=== PATIENT | female | born 1935 | race Caucasian/White ===

== ENCOUNTER 2024-11-27 15:25 | Inpatient (IN) | payer MEDICARE, SELFPAY ==
[2024-11-27 15:31] VITALS: BP 130/70; PULSE 102; TEMP 37.5; O2SAT 96
--- NOTE | 2024-11-27 15:36 | ED.GENADUL1 ---
HPI HPI - General Adult General Chief complaint: Fall Stated complaint: FAll Time Seen by Provider: 11/27/24 15:27 Source: family Mode of arrival: ambulance History of Present Illness HPI narrative: Patient is an 89-year-old female presenting to the emergency department via EMS from home hospice for concerns of a left lower extremity injury. The patient rolled out of bed 4 days ago. She sustained a left lower extremity injury after rolling out of bed, and just obtained x-rays today. The x-rays demonstrated a fracture of an unspecified bone in her lower extremity. Therefore, she was conveyed to the ED for management. The patient is accompanied by her daughter. She states that the patient is bedbound at baseline, has a history of severe dementia, and is DNR/CC. She has no other concerns for the patient other than the left lower extremity injury. Related Data Home Medications ?Medication ?Instructions ?Recorded ?Confirmed acetaminophen 325 mg capsule 650 mg PO Q6H PRN fever or pain 11/27/24 11/27/24 apixaban 2.5 mg tablet (Eliquis) 2.5 mg PO BID 11/27/24 11/27/24 diltiazem HCl 240 mg 240 mg PO DAILY 11/27/24 11/27/24 capsule,extended release 24 hr (Cardizem CD) duloxetine 60 mg capsule,delayed 60 mg PO DAILY 11/27/24 11/27/24 release gabapentin 300 mg capsule 600 mg PO TID 11/27/24 11/27/24 guaifenesin 600 mg tablet, 600 mg PO BID 11/27/24 11/27/24 extended release 12 hr (Mucinex) levothyroxine 112 mcg capsule 112 mcg PO DAILY 11/27/24 11/27/24 lorazepam 0.5 mg tablet 0.25 mg PO Q4H PRN agitation 11/27/24 11/27/24 metoprolol tartrate 50 mg tablet 50 mg PO BID 11/27/24 11/27/24 morphine concentrate 20 mg/mL oral 5 mg sublingual Q2H PRN pain and 11/27/24 11/27/24 syringe (FOR ORAL USE ONLY) shortness of breath rosuvastatin 10 mg tablet 10 mg PO QPM 11/27/24 11/27/24 sertraline 100 mg tablet 100 mg PO DAILY 11/27/24 11/27/24 trazodone 50 mg tablet 50 mg PO QPM PRN sleep 11/27/24 11/27/24 Allergies Allergy/AdvReac Type Severity Reaction Status Date / Time No Known Drug Allergies Allergy Verified 11/27/24 15:26 Opioid HPI Opioid Management Most Recent Opioid Data: Last Pain Scale 8 Today, 15:48 Last ED Pain Assessment Today, 15:48 Review of Systems ROS Status of ROS 10 or more systems reviewed and unremarkable except as noted in history and below Exam Narrative Exam Narrative: CONSTITUTIONAL: Patient appears to be in pain, nonverbal at baseline, does not answer questions or follow commands, awake and alert SKIN: Was warm and dry, no skin changes or external signs of injury throughout the left lower. EYES: Sclerae white. EARS, NOSE, THROAT: Moist oral mucosa. RESPIRATORY: Clear to auscultation bilaterally, no wheezes, crackles, or stridor, no use of accessory muscles CARDIOVASCULAR: Normal rate and regular rhythm. 1+ DP pulses bilaterally. GASTROINTESTINAL: Abdomen is nondistended. MUSCULOSKELETAL: The patient winces in pain as I palpate throughout all major bones of the left lower extremity. There are no obvious deformities. The compartments are soft and compressible. NEUROLOGIC: Patient is awake and alert. She moves the right lower extremity spontaneously, not moving left lower extremity. She withdraws to pain in the bilateral lower extremity. Constitutional Vital Signs, click to edit/add: Last Vital Signs Temp 99.5 F 11/27/24 15:31 Pulse 62 11/27/24 17:02 Resp 12 11/27/24 16:41 BP 130/70 11/27/24 15:31 Pulse Ox 92 L 11/27/24 17:02 O2 Del Method Nasal Cannula 11/27/24 17:02 O2 Flow Rate 2 11/27/24 17:02 Course Vital Signs Vital signs: Vital Signs Temperature 99.5 F 11/27/24 15:31 Pulse Rate 102 H 11/27/24 15:31 Respiratory Rate 22 H 11/27/24 15:31 Blood Pressure 130/70 11/27/24 15:31 Pulse Oximetry 96 11/27/24 15:31 Oxygen Delivery Method Nasal Cannula 11/27/24 15:31 Oxygen Delivery Flow Rate 2 11/27/24 15:31 Temperature 99.5 F 11/27/24 15:31 Pulse Rate 62 11/27/24 17:02 Respiratory Rate 12 11/27/24 16:41 Blood Pressure 130/70 11/27/24 15:31 Pulse Oximetry 92 L 11/27/24 17:02 Oxygen Delivery Method Nasal Cannula 11/27/24 17:02 Oxygen Delivery Flow Rate 2 11/27/24 17:02 Medical Decision Making MDM Narrative Medical decision making narrative: Patient is an 89-year-old female presenting to the emergency department via EMS from home hospice for concerns of left lower extremity fracture sustained 4 days ago after rolling out of bed. Patient is accompanied by her daughter. The patient is bedbound at baseline, has severe dementia, and is DNR/CC. Examination as noted above. She is afebrile and hemodynamically stable. She is saturating 94% on 2 L nasal cannula, which hospital started for the patient today. She is neurovascularly intact in the bilateral lower extremities. There are no obvious deformities. We were able to speak with the hospice nurse who explained to the patient had a L femoral condyle fracture. Differential diagnose includes left femoral condyle fracture, hip fracture. X-rays of the pelvis and left knee were obtained. She was given a breathing treatment as the family is concerned she was wheezing. X-rays of the pelvis and left knee independently reviewed and interpreted by myself and radiology demonstrated mildly displaced medial femoral condyle fracture. I do believe patient is stable for discharge. Given that the patient is nonambulatory at baseline, I gave the family a knee immobilizer to use should they desire. The knee immobilizer will likely provide comfort/support when being rolled/changed in bed. Family was encouraged to continue to care for the patient at home with the help of home hospice. They understand and agree to the plan. FINAL IMPRESSION: #Acute left medial femoral condyle fracture #History of advanced dementia on home hospice DISPOSITION: Discharged home CONDITION: Fair Imaging Data knee xray L: Attestation: I personally reviewed and interpreted this imaging study as follows: Radiologist's impression: ITS Impressions Pelvis X-Ray 11/27/24 16:07 IMPRESSION:No acute displaced fracture 2 views left elbow mildly displaced fracture of the medial femoral condyle. Large joint effusion. Decreased bony mineralization. Anterior soft tissue swelling. IMPRESSION: Mildly displaced medial femoral condyle fracture. Impression dictated by: Zhou Martinez M.D. 11/27/2024 4:39 PM Dictation Location: [employer] Electronically authenticated by: [id number] Y Date: 11/27/2024 16:39 Knee X-Ray 11/27/24 16:08 IMPRESSION:No acute displaced fracture 2 views left elbow mildly displaced fracture of the medial femoral condyle. Large joint effusion. Decreased bony mineralization. Anterior soft tissue swelling. IMPRESSION: Mildly displaced medial femoral condyle fracture. Impression dictated by: Zhou Martinez M.D. 11/27/2024 4:39 PM Dictation Location: [place] [address] Electronically authenticated by: [id number] Y Date: 11/27/2024 16:39 Discharge Plan Discharge Chief Complaint: Fall Clinical Impression: Femoral condyle fracture Qualifiers: Encounter type: initial encounter Fracture type: closed Fracture alignment: nondisplaced Laterality: left Qualified Code(s): S72.415A - Nondisplaced unspecified condyle fracture of lower end of left femur, initial encounter for closed fracture Patient Disposition: Home, Self-Care Time of Disposition Decision: 16:48 Condition: Fair Mode of Transportation: Private Vehicle Prescriptions / Home Meds: No Action gabapentin 300 mg capsule 600 mg PO TID trazodone 50 mg tablet 50 mg PO QPM PRN (Reason: sleep) diltiazem HCl [Cardizem CD] 240 mg capsule,extended release 24hr 240 mg PO DAILY levothyroxine 112 mcg capsule 112 mcg PO DAILY Eliquis 2.5 mg tablet 2.5 mg PO BID guaifenesin [Mucinex] 600 mg tablet extended release 12hr 600 mg PO BID lorazepam 0.5 mg tablet 0.25 mg PO Q4H PRN (Reason: agitation) metoprolol tartrate 50 mg tablet 50 mg PO BID duloxetine 60 mg capsule,delayed release(DR/EC) 60 mg PO DAILY sertraline 100 mg tablet 100 mg PO DAILY acetaminophen 325 mg capsule 650 mg PO Q6H PRN (Reason: fever or pain) rosuvastatin 10 mg tablet 10 mg PO QPM morphine concentrate 20 mg/mL syringe 5 mg sublingual Q2H PRN (Reason: pain and shortness of breath) Print Language: Welsh Instructions: Leg Fracture (ED) Referrals: Physician,Non-Staff, MD [Primary Care Provider] - 1 week
--- NOTE | 2024-11-27 15:46 | PC.NURSE ---
Pt presents to ER via EMS Pts daughter follow EMS in and identifies herself as patients POA Per EMS report we were told patient is on hospice and is a DNRCC No paperwork provided by family on arrival but she does agree to this status Report states that patient fell on monday out of bed, she had xrays yesterday at the house and found out today that there is something broken EMS nor patients daughter know what it is Pt has swelling to left knee and grimmaces and cries out with palpation to all areas of left leg This nurse calls Birdie (hospice nurse number provided by family) who reads imaging reports to this nurse States that patients hip x ray was negative but there is a femoral condial fracture Pt takes percocet and morphine regularly for pain per patients daughter, medications brought physically into ER
--- NOTE | 2024-11-27 16:07 | XR_ITS ---
The [place] [id number] Patient Name: MICHELLE GUERRIER MRN: [id number] date: 1935 Sex: F Assigned Patient Location: ER Current Patient Location: [place] Accession/Order Number: [id number] Exam Date: 11/27/2024 15:50 Report Date: 11/29/2024 13:00 At the request of: FARIBA HART DO Procedure: XR knee LT 2V Correction: Revised report Single view of the pelvis plain film HISTORY: Acute left knee and pelvic pain for 4 days. Fell. COMPARISON: None ACUTE FINDINGS: None BONY ALIGNMENT: Adequate SOFT TISSUES: Unremarkable DEGENERATIVE CHANGE:Unremarkable INTRAPELVIC STRUCTURES: Unremarkable POSTSURGICAL CHANGES:Unremarkable right hip arthroplasty. Inguinal bilateral surgical clips. Left iliac stent. XR/XR pelvis 1-2V IMPRESSION:No acute displaced fracture 2 views left knee mildly displaced fracture of the medial femoral condyle. Large joint effusion. Decreased bony mineralization. Anterior soft tissue swelling. IMPRESSION: Mildly displaced medial femoral condyle fracture. Impression dictated by: Zhou Martinez M.D. 11/29/2024 1:00 PM Dictation Location: [employer] Electronically authenticated by: [id number] Y Date: 11/29/2024 13:00
--- NOTE | 2024-11-27 16:08 | XR_ITS ---
[facility] [place] [id number] Patient Name: MICHELLE GUERRIER MRN: [id number] date: 1935 Sex: F Assigned Patient Location: ER Current Patient Location: [place] Accession/Order Number: [id number] Exam Date: 11/27/2024 15:50 Report Date: 11/29/2024 13:00 At the request of: FARIBA HART DO Procedure: XR knee LT 2V Correction: Revised report Single view of the pelvis plain film HISTORY: Acute left knee and pelvic pain for 4 days. Fell. COMPARISON: None ACUTE FINDINGS: None BONY ALIGNMENT: Adequate SOFT TISSUES: Unremarkable DEGENERATIVE CHANGE:Unremarkable INTRAPELVIC STRUCTURES: Unremarkable POSTSURGICAL CHANGES:Unremarkable right hip arthroplasty. Inguinal bilateral surgical clips. Left iliac stent. XR/XR knee LT 2V IMPRESSION:No acute displaced fracture 2 views left knee mildly displaced fracture of the medial femoral condyle. Large joint effusion. Decreased bony mineralization. Anterior soft tissue swelling. IMPRESSION: Mildly displaced medial femoral condyle fracture. Impression dictated by: Zhou Martinez M.D. 11/29/2024 1:00 PM Dictation Location: [employer] Electronically authenticated by: [id number] Y Date: 11/29/2024 13:00
[2024-11-27 16:41] VITALS: PULSE 102; O2SAT 94
[2024-11-27] MEDS: ALBUTEROL SULFATE 2.5 MG/3 ML VIAL NEB IH (17:01)
[2024-11-27 17:02] VITALS: PULSE 62; O2SAT 92
--- NOTE | 2024-11-27 18:38 | PC.NURSE ---
Pts family calls this nurse to bedside to swab patients mouth as it was dry Lengthy conversation held with patients family members about what is currently happening with the patients Pts son, daughter, and grandaughter are at bedside and state this is a sudden decline for her Pt at this time is not responding verbally, and need arousal to open her eyes and look at you Pt re-vitalized Pt unable to drink through a straw, patients family states this is new for her as she usually eats and drinks on her own Pts family says prior to this fall she was still high functioning but has been declining since Monday and rapidly declining this evening Pts facial expression appears to this nurse as being in pain I suggested more pain medication as she has not had anything since noon, but patient will be unable to swallow pills at this time Pts son (POA) declines morphine and asked if she could have IV pain medication since she cannot swallow pills This nurse suggested an IM This was relayed to Dr. Claudio who was unsure of what to give the patient if they did not want Morphine and would wait for the hospice nurse to give her opinion Pts son told me the hospice nurse would be coming into the hospital to evaluate the patient and speak with the family Pts son stated if the nurse believes she can recover from this he would like to take her off of hospice and seek further treatment, however if she does not and she tells them this is the end of life as the ER doctor did then they would like to take her home Transport and discharge has already been set up, but hospice nurse is due to be here any minute
[2024-11-27 19:10] VITALS: BP 129/96; PULSE 122; O2SAT 95
[2024-11-27 19:51] LABS: Hematocrit 39.6 % (36.0-48.0); Hemoglobin 13.1 g/dL (12.0-16.0); Immature Granulocytes Abs Auto 0.07 10^3/uL (0.00-0.03); Immature Granulocytes Pct Auto 0.5 % (0.0-0.5); Lymphocytes Absolute Auto 1.6 10^3/uL (1.2-3.8); Mean Corpuscular HGB Conc 33.1 g/dL (29.9-35.2); Mean Corpuscular Hemoglobin 31.0 pg (26.7-34.0); Mean Corpuscular Volume 93.6 fL (81.0-99.0); Platelet Count 243 10^3/uL (150-450); Red Blood Count 4.23 10^6/uL (4.20-5.40); White Blood Count 14.5 10^3/uL (4.0-11.0)
--- NOTE | 2024-11-27 19:52 | PC.NURSE ---
This nurse went in to start an IV due to POA ending hospice care and pushing for further evaluation and treatment Pts family at bedside arguing due to the POA and grandson wanting further care provided and answers while the women of the family would rather take the patient home and let her live out her last days This nurse was unable to obtain IV access - but labs were obtained
[2024-11-27 20:04] LABS: Alanine Aminotransferase 203 U/L (14-59); Albumin Globulin Ratio 0.6; Albumin Level 2.8 g/dL (3.4-5.0); Alkaline Phosphatase 209 U/L (46-116); Anion Gap 9.6; Aspartate Amino Transferase 82 U/L (15-37); Blood Urea Nitrogen 11.0 mg/dL (7.0-18.0); Calcium 9.2 mg/dL (8.5-10.1); Carbon Dioxide 28.3 mmol/L (21.0-32.0); Chloride 101 mmol/L (98-107); Estimated GFR (African America >60 (>=60 mL/min/1.73m^2); Estimated GFR (Non-African Ame >60 (>=60 mL/min/1.73m^2); Globulin 4.7 g/dL; Glucose 116 mg/dL (74-106); Potassium 3.9 mmol/L (3.5-5.1); Sodium 135 mmol/L (136-145); Total Protein 7.5 g/dL (6.4-8.2)
[2024-11-27] MEDS: KETOROLAC TROMETHAMINE 30 MG/ML VIAL 15 MG IVP (20:48)
--- NOTE | 2024-11-27 21:00 | ED.GENADUL1 ---
HPI HPI - General Adult General Chief complaint: Fall Stated complaint: FAll Time Seen by Provider: 11/27/24 15:27 Source: family Mode of arrival: ambulance History of Present Illness HPI narrative: This 89-year-old female who is in hospice for end-stage dementia and cared for at home is signed out to me at shift change. She was sent to the emergency department for an x-ray of the left knee. According to the family who cares for her at home, 4 days ago she abruptly got out of bed and fell. She injured her knee at that time. She was seen by hospice with recommendation for evaluation in the emergency department. X-ray of the left knee does show a fracture. The plan was to discharge the patient back to home with home care but her son who is the power of managing attorney intervened and does not wish to have her taken home. I had a lengthy discussion with the hospice nurse. The family wants her admitted for fluids and pain medication but refuses to let her have morphine. According to the family the patient has not been eating or drinking since her fall. They are concerned that she is dehydrated. I evaluated her myself. She is sleeping and arousable. She will squeeze her hands and smile but is otherwise nonverbal. I was able to place an IV and give her IV fluids and IV tylenol. Her respirations are 10 and shallow. Routine labs are reviewed. Her white count is elevated 14 with a stable hemoglobin. Electrolytes are normal with elevated liver function test. X-ray of the left knee shows a moderately displaced left medial condyle fracture. The case was discussed with the hospitalist and the patient is accepted for admission. According to the hospice nurse the patient may qualify for in-hospital hospice care if she requires IV fluids, IV Zofran for nausea vomiting or IV pain medication for intractable pain. Related Data Home Medications ?Medication ?Instructions ?Recorded ?Confirmed acetaminophen 325 mg capsule 650 mg PO Q6H PRN fever or pain 11/27/24 11/27/24 apixaban 2.5 mg tablet (Eliquis) 2.5 mg PO BID 11/27/24 11/27/24 diltiazem HCl 240 mg 240 mg PO DAILY 11/27/24 11/27/24 capsule,extended release 24 hr (Cardizem CD) duloxetine 60 mg capsule,delayed 60 mg PO DAILY 11/27/24 11/27/24 release gabapentin 300 mg capsule 600 mg PO TID 11/27/24 11/27/24 guaifenesin 600 mg tablet, 600 mg PO BID 11/27/24 11/27/24 extended release 12 hr (Mucinex) levothyroxine 112 mcg capsule 112 mcg PO DAILY 11/27/24 11/27/24 lorazepam 0.5 mg tablet 0.25 mg PO Q4H PRN agitation 11/27/24 11/27/24 metoprolol tartrate 50 mg tablet 50 mg PO BID 11/27/24 11/27/24 morphine concentrate 20 mg/mL oral 5 mg sublingual Q2H PRN pain and 11/27/24 11/27/24 syringe (FOR ORAL USE ONLY) shortness of breath rosuvastatin 10 mg tablet 10 mg PO QPM 11/27/24 11/27/24 sertraline 100 mg tablet 100 mg PO DAILY 11/27/24 11/27/24 trazodone 50 mg tablet 50 mg PO QPM PRN sleep 11/27/24 11/27/24 Allergies Allergy/AdvReac Type Severity Reaction Status Date / Time No Known Drug Allergies Allergy Verified 11/27/24 15:26 Opioid HPI Opioid Management Most Recent Opioid Data: Last Pain Scale 8 Today, 15:48 Last ED Pain Assessment Today, 15:48 Exam Constitutional Vital Signs, click to edit/add: Last Vital Signs Temp 99.5 F 11/27/24 15:31 Pulse 122 H 11/27/24 19:10 Resp 10 L 11/27/24 19:10 BP 129/96 H 11/27/24 19:10 Pulse Ox 95 11/27/24 19:10 O2 Del Method Nasal Cannula 11/27/24 17:02 O2 Flow Rate 2 11/27/24 19:10 Course Vital Signs Vital signs: Vital Signs Temperature 99.5 F 11/27/24 15:31 Pulse Rate 102 H 11/27/24 15:31 Respiratory Rate 22 H 11/27/24 15:31 Blood Pressure 130/70 11/27/24 15:31 Pulse Oximetry 96 11/27/24 15:31 Oxygen Delivery Method Nasal Cannula 11/27/24 15:31 Oxygen Delivery Flow Rate 2 11/27/24 15:31 Temperature 99.5 F 11/27/24 15:31 Pulse Rate 122 H 11/27/24 19:10 Respiratory Rate 10 L 11/27/24 19:10 Blood Pressure 129/96 H 11/27/24 19:10 Pulse Oximetry 95 11/27/24 19:10 Oxygen Delivery Method Nasal Cannula 11/27/24 17:02 Oxygen Delivery Flow Rate 2 11/27/24 19:10 Medical Decision Making Lab Data Lab results reviewed: Yes I reviewed the patient's lab results Labs: Lab Results 11/27/24 Range/Units 19:44 WBC 14.5 H (4.0-11.0) 10^3/uL RBC 4.23 (4.20-5.40) 10^6/uL Hgb 13.1 (12.0-16.0) g/dL Hct 39.6 (36.0-48.0) % MCV 93.6 (81.0-99.0) fL MCH 31.0 (26.7-34.0) pg MCHC 33.1 (29.9-35.2) g/dL RDW 15.5 H (11.0-15.0) % Plt Count 243 (150-450) 10^3/uL MPV 10.0 (9.5-13.5) fL Neut % (Auto) 81.3 H (43.0-75.0) % Lymph % (Auto) 10.8 L (20.5-60.0) % [place] % (Auto) 7.1 (1.7-12.0) % Eos % (Auto) 0.1 L (0.9-7.0) % Baso % (Auto) 0.2 (0.2-2.0) % Neut # (Auto) 11.8 H (1.4-6.5) 10^3/uL Lymph # (Auto) 1.6 (1.2-3.8) 10^3/uL [place] # (Auto) 1.0 H (0.3-0.8) 10^3/uL Eos # (Auto) 0.0 (0.0-0.7) 10^3/uL Baso # (Auto) 0.0 (0.0-0.1) 10^3/uL Abs Immat Gran (auto) 0.07 H (0.00-0.03) 10^3/uL Imm/Tot Granulo (auto) 0.5 (0.0-0.5) % Sodium 135 L (136-145) mmol/L Potassium 3.9 (3.5-5.1) mmol/L Chloride 101 (98-107) mmol/L Carbon Dioxide 28.3 (21.0-32.0) mmol/L Anion Gap 9.6 BUN 11.0 (7.0-18.0) mg/dL Creatinine 0.74 (0.55-1.02) mg/dL Est GFR ( Amer) >60 (>=60 mL/min/1.73m^2) Est GFR (Non-Af Amer) >60 (>=60 mL/min/1.73m^2) BUN/Creatinine Ratio 14.9 Glucose 116 H (74-106) mg/dL Calcium 9.2 (8.5-10.1) mg/dL Total Bilirubin 0.9 (0.2-1.0) mg/dL AST 82 H (15-37) U/L ALT 203 H (14-59) U/L Alkaline Phosphatase 209 H (46-116) U/L Total Protein 7.5 (6.4-8.2) g/dL Albumin 2.8 L (3.4-5.0) g/dL Globulin 4.7 g/dL Albumin/Globulin Ratio 0.6 Imaging Data knee: Radiologist's impression: ITS Impressions Pelvis X-Ray 11/27/24 16:07 IMPRESSION:No acute displaced fracture 2 views left elbow mildly displaced fracture of the medial femoral condyle. Large joint effusion. Decreased bony mineralization. Anterior soft tissue swelling. IMPRESSION: Mildly displaced medial femoral condyle fracture. Impression dictated by: Zhou Martinez M.D. 11/27/2024 4:39 PM Dictation Location: [employer] Electronically authenticated by: [id number] Y Date: 11/27/2024 16:39 Knee X-Ray 11/27/24 16:08 IMPRESSION:No acute displaced fracture 2 views left elbow mildly displaced fracture of the medial femoral condyle. Large joint effusion. Decreased bony mineralization. Anterior soft tissue swelling. IMPRESSION: Mildly displaced medial femoral condyle fracture. Impression dictated by: Zhou Martinez M.D. 11/27/2024 4:39 PM Dictation Location: [employer] Electronically authenticated by: [id number] Y Date: 11/27/2024 16:39 Discharge Plan Discharge Chief Complaint: Fall Clinical Impression: Admission for end of life care Femoral condyle fracture Qualifiers: Encounter type: initial encounter Fracture type: closed Fracture alignment: nondisplaced Laterality: left Qualified Code(s): S72.415A - Nondisplaced unspecified condyle fracture of lower end of left femur, initial encounter for closed fracture Patient Disposition: Admitted as Observation Time of Disposition Decision: 16:48 Condition: Fair
[2024-11-27] MEDS: ACETAMINOPHEN 1,000 MG/100 ML PREMIX 400 MG IV (21:31)
[2024-11-27 21:58] VITALS: BP 84/58; PULSE 95; TEMP 36.9; O2SAT 92
[2024-11-27 22:20] VITALS: BMI 25.6
[2024-11-27 23:02] VITALS: TEMP 38.4
[2024-11-27 23:49] LABS: Glucose Urine UA NEGATIVE (NEGATIVE)
[2024-11-28 02:05] VITALS: TEMP 36.7
[2024-11-28 03:55] VITALS: BP 79/43; PULSE 62; TEMP 36.5; O2SAT 92
--- NOTE | 2024-11-28 06:23 | XR_ITS ---
The [address] [address] Patient Name: MICHELLE GUERRIER MRN: [id number] date: 1935 Sex: F Assigned Patient Location: [place] Current Patient Location: [place] Accession/Order Number: [id number] Exam Date: 11/28/2024 07:40 Report Date: 11/28/2024 10:24 At the request of: TIMOTHY CORTES MD Procedure: XR chest 1V PORTABLE AP SEMIERECT CHEST 0637 hours CLINICAL HISTORY: Fever COMPARISON: None There is elevation of the right hemidiaphragm. The heart is borderline enlarged. There is minimal interstitial change and right-sided ground glass density. Scarring and/or atelectasis is visualized bilaterally, greater on the right. No focal consolidation is seen. No sizable effusion or pneumothorax is noted. The bony structures are osteopenic. There is mild degenerative change at the spine. XR/XR chest 1V IMPRESSION: BORDERLINE CARDIOMEGALY. MILD PARENCHYMAL CHANGES, DESCRIBED. THERE ARE NO PRIORS TO DETERMINE CHRONICITY. Impression dictated by: Tasha Traylor M.D. 11/28/2024 10:24 AM Dictation Location[facility] Electronically authenticated by: [id number] Y Date: 11/28/2024 10:24
[2024-11-28] MEDS: 0.9 % SODIUM CHLORIDE 1,000 ML 250 ML IV ×2 (06:37→11:44)
[2024-11-28 08:00] VITALS: BP 94/60; PULSE 94; TEMP 36.4; O2SAT 94
[2024-11-28] MEDS: ACETAMINOPHEN 325 MG TABLET 650 MG PO ×2 (08:16→20:40)
--- NOTE | 2024-11-28 08:30 | CM.NOTE ---
Rounds made with Dr. Han, discussed with pt and son reason for admission and plan of care. Consult to ortho and notified. Pt will have CT of L extremity and abdomen and pelvis. Son in agreement and verbalizes understanding.
--- NOTE | 2024-11-28 09:39 | SWNOTE1 ---
FLORINA met with pt's son, Sunny Johnson, who is the POA. FLORINA and Sunny discussed discharge planning. Pt was living at home with pt's daughter. They also had a private rn long term care coming in to assist. Sunny did let FLORINA know that the private caregiver had been a no call no show for 2 days. Sunny also voiced concerns that his sister is not able to care for pt at home. Pt has been non-ambulatory for some time. Pt did used to live with Sunny, but Sunny and his had determined they were not able to care for pt. At that time, around 1-2 years ago, pt was ambulating with a walker. Pt did have a previous fall and broke her hip in past and did recover from that. Sunny did voice he was unsure of how pt rolled out of bed, possibly side rail was not up? Sunny did voice concerns about his mother being in the home with his sister and his sister's live in boyfriend. Pt also has [facility] coming in to the home as well. Sunny feels at this time, it would be the most safe discharge plan of placement at a facility. He would like FLORINA to look in to [place]. Will, executive secretary social welfare from [facility], called during conversation. FLORINA, Will, and Sunny spoke over the phone. Will voiced they are having someone from [facility] go out to [place] to speak with them about admission. Will requested we send information in regards to pt's hospital visit to [place]. FLORINA let Will know that FLORINA will call and send information. Will provided his cell phone number to contact him with any further questions or updates. At this time Ortho will be consulted and Sunny is in agreement with this plan. Plan is for placement at [facility] if they have a bed open. It will be determined between skilled or correction with hospice depending on ortho consult. Sunny is in agreement with this plan and did voice if she can benefit from some therapy that would be great. No further questions at this time.
--- NOTE | 2024-11-28 10:28 | CT_ITS ---
The [address] [address] Patient Name: MICHELLE GUERRIER MRN: [id number] date: 1935 Sex: F Assigned Patient Location: MS Current Patient Location: MS Accession/Order Number: [id number] Exam Date: 11/28/2024 11:28 Report Date: 11/28/2024 12:02 At the request of: TIMOTHY CORTES MD Procedure: CT knee LT wo con CT LEFT KNEE WITH RECONSTRUCTIONS CLINICAL DATA: Patient fell. Follow-up distal femur fracture. COMPARISON: Plain films 11/27/2024 Spiral axial unenhanced images were obtained through the knee. Sagittal and coronal reconstructions were reviewed. This CT exam was performed using one or more following dose reduction techniques: Automated exposure control, adjustment of the mA and/or kV according to patient size, or use of iterative reconstruction technique. The bony structures are osteopenic. There is a mildly impacted and displaced fracture at the medial femoral condyle in the vicinity of the old growth plate. This is believed to also extend through the area of the growth plate laterally. No intra-articular extension is seen. The imaged tibia, fibula and patella within the [id number] are intact. There is no dislocation or significant patellar subluxation. There is slight narrowing at the medial tibiofemoral joint compartment. There is squaring off the articular margins. A tiny enthesophyte is seen at the insertion of the quadriceps tendon. There is a moderate size knee effusion. CT/CT knee LT wo con IMPRESSION: OSTEOPENIA AND MINIMAL DEGENERATIVE CHANGE. FRACTURE AT THE FEMORAL CONDYLES, PREDOMINANTLY MEDIAL, DESCRIBED. Impression dictated by: Tasha Traylor M.D. 11/28/2024 12:02 PM Dictation Location: [place] [address] Electronically authenticated by: [id number] Y Date: 11/28/2024 12:02
--- NOTE | 2024-11-28 10:34 | CT_ITS ---
The [address] [address] Patient Name: MICHELLE GUERRIER MRN: [id number] date: 1935 Sex: F Assigned Patient Location: MS Current Patient Location: Accession/Order Number: [id number] Exam Date: 11/28/2024 11:28 Report Date: 11/28/2024 16:08 At the request of: TIMOTHY CORTES MD Procedure: CT abdomen pelvis wo con CT abdomen pelvis wo con 11/28/2024 11:43 AM SIGNS AND SYMPTOMS: Periumbilical abdominal pain TECHNIQUE: Multidetector ct axial images of the abdomen and pelvis were obtained without IV contrast. Multiplanar reformats were performed and reviewed to further define anatomy and possible pathology. CT was performed with one or more of the following dose reduction techniques: Automated exposure control, adjustment of the mA and/or kV according to patient size, or use of iterative reconstruction technique. COMPARISON: None. FINDINGS: Lower Chest: Atherosclerotic changes are noted in the thoracic aorta and coronary arteries. Dependent atelectasis is noted in the lung bases. ABDOMEN: Liver: Within normal limits. Bile Ducts: Normal caliber. Gallbladder: Previously removed Pancreas: Within normal limits. Spleen: Within normal limits. Adrenals: Within normal limits. Kidneys: Within normal limits. Pelvis: Reproductive Organs: No pelvic masses. Ureters: Within normal limits. Bladder: A Le catheter is present in the bladder. Bowel: Normal caliber. No evidence of acute appendicitis. Stool is noted throughout the small bowel and colon. Mesenteric Lymph Nodes: No enlarged mesenteric lymph nodes. Peritoneum: No ascites or free air, no fluid collection. Vessels: Atherosclerotic changes noted in the abdominal aorta. There is endovascular repair of the distal abdominal aorta and proximal left common iliac artery. Retroperitoneum: Within normal limits. Abdominal Wall: Fat-containing inguinal hernias are present. Bones: Degenerative changes are noted in the thoracolumbar spine as well as the sacroiliac joints. Postoperative changes are noted in the right hip. CT/CT abdomen pelvis wo con IMPRESSION: No bowel obstruction or obstructive uropathy. Liquid stool is noted throughout the small bowel and colon. No free fluid or free air. Impression dictated by: Ilya Driscoll M.D. 11/28/2024 4:08 PM Dictation Location: [place] [address] Electronically authenticated by: [id number] Y Date: 11/28/2024 16:08
[2024-11-28 11:57] VITALS: BP 100/62; PULSE 99; TEMP 36.8; O2SAT 90
--- NOTE | 2024-11-28 12:37 | SWNOTE1 ---
Referral sent to [facility]. Referral included face sheet, ED note, case management report, nursing notes, diagnostic imaging, med list, and DNR order. FLORINA called to [facility] and left a message for Gabriella in admissions. SW received a call back from Robyn at [facility]. She did received the referral and she also received information from Tara at [facility]. SW let her know that we are unsure of dc disposition, possibly skilled or mcfp. She stated that Hospice also mentioned respit stay as well. SW let her know we consulted ortho and waiting for them to see her as well. SW did ask if they are in network with [employer]. She stated yes. She advised SW they only have a semi-private room in the memory/Dementia unit. SW to let pt's son Sunny know. SW spoke to pt's son, pt's daughter, a caregiver, and another family member in room. FLORINA advised that they do have a bed (skilled, LTC, or respite) but it will be in the locked unit. They voiced understanding and everyone in agreement with plan.
--- NOTE | 2024-11-28 14:46 | SWNOTE1 ---
FLORINA spoke to Mine Safety Manager, Will, from [facility]. FLORINA advised that pt is not a surgical candidate and SW to check on discharge plans. Will did ask SW if pt was GIP here, FLORINA advised that nobody has mentioned that [facility] has made her GIP under hospice. Will will check on this and call SW back. Pt is not a surgical candidate. FLORINA called and spoke to Sunny, pt's son. He did have a conversation with Dr. Mustafa, ortho doctor. FLORINA did advise Sunny since pt is not surgical pt will likely be discharged tomorrow. Sunny stated he is at [place] right now and wants to check things out. FLORINA advised that SW did talk to Robyn at [facility] and she would be the one for him to speak to in regards to finances. He is unsure who is meeting with at this time. SW to call Robyn. FLORINA called and spoke to Robyn at [facility]. FLORINA advised that pt will be discharged tomorrow. She is not a surgical candidate and not pursing PT/OT/rehab. Robyn voiced she will reach out to Tara at [facility] to discuss respite or mcc.
--- NOTE | 2024-11-28 15:06 | PM.HP ---
HPI H&P: HPI History of Present Illness Chief complaint: End of Life CARE DNRCC Narrative: Mrs. Johnson is an 89-year-old female who is hospice patient. Patient is bedbound. Somehow the patient fell off of bed although she is unable to move or change her position in bed according to her son. She was brought in with left knee pain. She was found to have femoral condyle fracture. I had accepted the patient to be admitted to the medical floor for pain management and for realignment of hospice care on discharge. Patient did develop fever last night. I started her on ceftriaxone. I requested UA which came back negative. Patient is a poor historian. She has vascular dementia as reported by her son. She is bedbound for the last year and a half. Patient reports having some abdominal pain. Opioid HPI Opioid Management Most Recent Pain and Opioid Data: Last Pain Scale 7 Today, 09:34 Last Pain Assessment 11/27/24, 22:00 Last ED Pain Assessment 11/27/24, 15:48 Last MAR Pain Assessment 11/27/24, 21:31 Last ORT Total Score 1 11/27/24, 22:27 Last ORT Risk Category Low Risk 11/27/24, 22:27 Review of Systems ROS Narrative Bedbound, abdominal pain, confusion, disorientation, fever, leg pain on the left side. PFSH [facility] Medical History (Updated 11/28/24 @ 15:09 by Herb Han MD) Former smoker ?Z87.891 - Personal history of nicotine dependence (ICD-10) COPD (chronic obstructive pulmonary disease) ?J44.9 - Chronic obstructive pulmonary disease, unspecified (ICD-10) Hyperlipemia ?E78.5 - Hyperlipidemia, unspecified (ICD-10) History of broken leg ?Z87.81 - Personal history of (healed) traumatic fracture (ICD-10) Dementia ?F03.90 - Unspecified dementia, unspecified severity, without behavioral disturbance, psychotic disturbance, mood disturbance, and anxiety (ICD-10) DNR no code (do not resuscitate) ?Z66 - Do not resuscitate (ICD-10) Surgical History (Updated 11/27/24 @ 23:49 by Cesilia Pedroza RN) History of hip replacement ?Z96.649 - Presence of unspecified artificial hip joint (ICD-10) Family History (Updated 11/27/24 @ 22:33 by Cesilia Pedroza RN) Father Family history of myocardial infarction Sister Family history of cancer Other Family history of CHF (congestive heart failure) Social History (Updated 11/27/24 @ 22:34 by Cesilia Pedroza RN) Within the past year, how often did you have a drink containing alcohol: never Score interpretation: A score less than 3 is consistent with normal alcohol consumption. Smoking status: Former smoker Non-prescribed substance use: denies use Highest level of school completed/degree received: 10th grade Are you now , , , , never or living with a partner: In a typical week, how many times do you talk on the telephone with family, friends, or neighbors: 3 or more times per week How often do you get together with friends or relatives: 3 or more times per week Gender Identity: female Meds Home Medications and Allergies Home Medications ?Medication ?Instructions ?Recorded ?Confirmed ?Type acetaminophen 325 mg capsule 650 mg PO Q6H PRN fever or pain 11/27/24 11/27/24 History apixaban 2.5 mg tablet (Eliquis) 2.5 mg PO BID 11/27/24 11/27/24 History diltiazem HCl 240 mg 240 mg PO DAILY 11/27/24 11/27/24 History capsule,extended release 24 hr (Cardizem CD) duloxetine 60 mg capsule,delayed 60 mg PO DAILY 11/27/24 11/27/24 History release gabapentin 300 mg capsule 600 mg PO TID 11/27/24 11/27/24 History guaifenesin 600 mg tablet, 600 mg PO BID 11/27/24 11/27/24 History extended release 12 hr (Mucinex) levothyroxine 112 mcg capsule 112 mcg PO DAILY 11/27/24 11/27/24 History lorazepam 0.5 mg tablet 0.25 mg PO Q4H PRN agitation 11/27/24 11/27/24 History metoprolol tartrate 50 mg tablet 50 mg PO BID 11/27/24 11/27/24 History morphine concentrate 20 mg/mL oral 5 mg sublingual Q2H PRN pain and 11/27/24 11/27/24 History syringe (FOR ORAL USE ONLY) shortness of breath rosuvastatin 10 mg tablet 10 mg PO QPM 11/27/24 11/27/24 History sertraline 100 mg tablet 100 mg PO DAILY 11/27/24 11/27/24 History trazodone 50 mg tablet 50 mg PO QPM PRN sleep 11/27/24 11/27/24 History Allergies Allergy/AdvReac Type Severity Reaction Status Date / Time No Known Drug Allergies Allergy Verified 11/27/24 15:26 Exam Narrative Exam Narrative: Patient is lying in bed. Awake but not fully alert. Poor historian. Able to answer some yes/no questions without accuracy. Morbidly obese. Pale skin and buccal mucosa. Neck is supple. Chest exam is clear. Heart is regular. Abdomen soft, diffuse tenderness. Lower extremities trace pitting edema. Swelling and tenderness of the left knee. Constitutional Vital Signs, click to edit/add: Last Vital Signs Temp 98.3 F 11/28/24 11:57 Pulse 99 H 11/28/24 11:57 Resp 18 11/28/24 11:57 BP 100/62 11/28/24 11:57 Pulse Ox 90 L 11/28/24 11:57 O2 Del Method Nasal Cannula 11/28/24 11:57 O2 Flow Rate 2 11/28/24 11:57 Results Labs Labs: Short CBC 11/27/24 Range/Units 19:44 WBC 14.5 H (4.0-11.0) 10^3/uL Hgb 13.1 (12.0-16.0) g/dL Hct 39.6 (36.0-48.0) % Plt Count 243 (150-450) 10^3/uL BMP 11/27/24 19:44 Sodium 135 L Potassium 3.9 Chloride 101 Carbon Dioxide 28.3 BUN 11.0 Creatinine 0.74 Glucose 116 H Calcium 9.2 Liver Function 11/27/24 Range/Units 19:44 Total Bilirubin 0.9 (0.2-1.0) mg/dL AST 82 H (15-37) U/L ALT 203 H (14-59) U/L Alkaline Phosphatase 209 H (46-116) U/L Albumin 2.8 L (3.4-5.0) g/dL Urine 11/27/24 Range/Units 23:43 Urine Color Yellow (YELLOW) Urine Clarity Clear (CLEAR) Urine pH 5.5 (5.0-9.0) Ur Specific [place] 1.020 (1.005-1.025) Urine Protein Negative (NEG/TRACE) mg/dL Urine Glucose (UA) Negative (NEGATIVE) mg/dL Assessment and Plan Assessment and Plan (1) Admission for end of life care: (2) Femoral condyle fracture: Qualifiers: Encounter type: initial encounter Fracture alignment: nondisplaced Fracture type: closed Laterality: left Qualified Code(s): S72.415A - Nondisplaced unspecified condyle fracture of lower end of left femur, initial encounter for closed fracture (3) Fever: (4) Bedbound: (5) Sepsis: (6) Elevated LFTs: Plan Left femoral fracture Patient was seen by Dr. Mustafa who recommended CT read. He did not recommend any surgical intervention but knee brace and conservative management. Fever, unknown source. UA is negative. Patient has elevation of the transaminases. Normal bilirubin Requested CAT scan of the abdomen and start patient empirically on ceftriaxone. Changed to ertapenem to cover anaerobes. Requested a blood culture as well Vascular dementia with worsening disorientation and confusion according to her family. Back to baseline according to her son. Likely secondary to metabolic and septic encephalopathy. Requested check ammonia level. Functional disability, bedbound status Patient has been under the hospice care for a year or so according to the son Goals of care discussion and advance care planning I spent about 30 minutes discussing this with the son who is the power of glassware finisher. We discussed her condition, status and treatment plan. We discussed and explained the difference between aggressive versus comfort care approach Son requested in basic terms not to put his mom through any aggressive diagnostic or therapeutic intervention. He requested care that is intended for comfort and comfort care only. Son does not feel comfortable patient living at home under the supervision of private pay and her daughter. Son is requesting discharge to group home, long-term residential living private pay. Once again comfort is the goal according to her son Urinary Catheter Management Urinary Catheter Management Urethral: Cath placed during this visit: yes Urethral indwelling: No Insertion date: 11/27/24 Insertion time: 23:51
--- NOTE | 2024-11-28 15:18 | CT_ITS ---
The [address] [address] Patient Name: MICHELLE GUERRIER MRN: [id number] date: 1935 Sex: F Assigned Patient Location: MS Current Patient Location: MS Accession/Order Number: [id number] Exam Date: 11/28/2024 16:31 Report Date: 11/28/2024 23:51 At the request of: TIMOTHY CORTES MD Procedure: CT head/brain wo con CT head/brain wo con 11/28/2024 4:37 PM SIGNS AND SYMPTOMS: ^Confusion, rule out bleed. TECHNIQUE:Multi-detector CT axial slices of the brain were obtained without IV contrast. CT was performed with one or more of the following dose reduction techniques: Automated exposure control, adjustment of the mA and/or kV according to patient size, or use of iterative reconstruction technique. COMPARISON: None. FINDINGS: There is no shift of the midline structures, acute intracranial bleeding, mass effects, or evidence of acute ischemia. There is age-related cortical atrophy. There is periventricular white matter hypoattenuation. Atherosclerotic changes are noted in the intracranial segments of the internal carotid arteries. There is mineralization of the deep radiograph. The ventricular system is normal in size. The brainstem and the cerebellum are unremarkable. The visualized intraorbital contents, the visualized paranasal sinuses, and the infratemporal soft tissues show no acute abnormality. The osseous structures in the skull base and the calvarium show no abnormality. CT/CT head/brain wo con IMPRESSION: No acute grade pathology. Chronic age-related neurodegenerative changes are noted as above. Impression dictated by: Ilya Driscoll M.D. 11/28/2024 11:51 PM Dictation Location: [place] [address] Electronically authenticated by: [id number] Y Date: 11/28/2024 23:51
[2024-11-28 15:42] LABS: Ammonia <10 umol/L (11-32)
[2024-11-28] MEDS: ERTAPENEM SODIUM 1 GM in 0.9 % SODIUM CHLORIDE 50 ML IV (15:45)
--- NOTE | 2024-11-28 15:56 | SWNOTE1 ---
FLORINA received an email from Will at [facility], along with Robyn from [facility]. Pt will be discharging tomorrow to [place] under a 5 night respite stay covered by hospice, family will then figure out joint terminal attack controller payment. Hospice will coordinate transportation via [facility] or early afternoon and notify SW of time. FLORINA called Sunny, pt's son, and he did confirm that this is the plan. Sunny did request a little bit later of a transport, possibly 3:30/4:00. FLORINA to email Will. FLORINA emailed Will requesting 3:30/4:00 transport time. FLORINA did update case management and pt's nurse Yuki.
[2024-11-28 16:00] VITALS: BP 96/63; PULSE 94; TEMP 36.7; O2SAT 92
--- NOTE | 2024-11-28 16:02 | SWNOTE1 ---
Important Message from [employer] reviewed and discussed with patient's son, Sunny via telephone. Sunny verbalized understanding and SW signed the form that it was reviewed and no further questions at this time. Original placed in pt's room and copy placed in patient?s chart.
--- NOTE | 2024-11-28 16:19 | SWNOTE1 ---
SW faxed over H&P and diagnostic imaging to [facility].
[2024-11-28 16:27] LABS: SARS-CoV-2 Ag POSITIVE (NEGATIVE)
[2024-11-28 20:00] VITALS: BP 109/61; PULSE 121; TEMP 36.2; O2SAT 91
[2024-11-28] MEDS: APIXABAN 5 MG TABLET 2.5 MG PO (20:40)
[2024-11-28] MEDS: DEXAMETHASONE SOD PHOS 4 MG/ML VIAL 6 MG IV (20:40)
[2024-11-29] VITALS: BP 94/60; PULSE 101; TEMP 36.4; O2SAT 96
[2024-11-29 03:35] VITALS: BP 94/60; PULSE 121; TEMP 36.6; O2SAT 92
[2024-11-29 05:13] LABS: Hematocrit 33.6 % (36.0-48.0); Hemoglobin 11.0 g/dL (12.0-16.0); Mean Corpuscular HGB Conc 32.7 g/dL (29.9-35.2); Mean Corpuscular Hemoglobin 31.3 pg (26.7-34.0); Mean Corpuscular Volume 95.7 fL (81.0-99.0); Platelet Count 226 10^3/uL (150-450); Red Blood Count 3.51 10^6/uL (4.20-5.40); White Blood Count 10.2 10^3/uL (4.0-11.0)
[2024-11-29 05:39] LABS: Alanine Aminotransferase 106 U/L (14-59); Albumin Globulin Ratio 0.4; Albumin Level 1.9 g/dL (3.4-5.0); Alkaline Phosphatase 155 U/L (46-116); Anion Gap 10.5; Aspartate Amino Transferase 28 U/L (15-37); Blood Urea Nitrogen 12.0 mg/dL (7.0-18.0); Calcium 8.7 mg/dL (8.5-10.1); Carbon Dioxide 26.4 mmol/L (21.0-32.0); Chloride 108 mmol/L (98-107); Estimated GFR (African America >60 (>=60 mL/min/1.73m^2); Estimated GFR (Non-African Ame >60 (>=60 mL/min/1.73m^2); Globulin 4.3 g/dL; Glucose 187 mg/dL (74-106); Potassium 3.9 mmol/L (3.5-5.1); Sodium 141 mmol/L (136-145); Total Protein 6.2 g/dL (6.4-8.2)
[2024-11-29] MEDS: LEVOTHYROXINE SODIUM 112 MCG TABLET PO (06:07)
[2024-11-29 07:13] VITALS: BP 112/58; PULSE 104; TEMP 36.3; O2SAT 93
--- NOTE | 2024-11-29 08:00 | CM.NOTE ---
Rounds made with Dr. Han, discussed plan of care with pt. Updated Dr. Han about [facility] not able to accept pt d/t COVID and only having semi-private room. Lillie HEATON will call son for discharge planning.
[2024-11-29] MEDS: APIXABAN 5 MG TABLET 2.5 MG PO (08:28)
[2024-11-29] MEDS: DEXAMETHASONE SOD PHOS 4 MG/ML VIAL 6 MG IV (08:28)
[2024-11-29] MEDS: ACETAMINOPHEN 325 MG TABLET 650 MG PO ×2 (08:31→22:22)
--- NOTE | 2024-11-29 08:37 | SWNOTE1 ---
Pt tested positive for Covid yesterday evening. [facility] has been notified and so has Will at [facility]. This is the message received from Robyn at [facility]: We have to hold off for 10 days without ability to take from the day tested positive. ?It's protocol to protect infection to others in facility. ?We do not have a room separate at the time we are almost full housed so it's a risk we have to be cautious on. ?Let me know if she will be waiting at the hospital pending admission or if has alternate discharge plans. ?Sorry for the unfortunate short notice and new complication for her. ?Keep us informed and thank you!
--- NOTE | 2024-11-29 08:37 | PM.ORCN ---
History of Present Illness HPI Consult date: 11/28/24 Consult reason: fracture Narrative: Sheron is an 89-year-old female who sustained a nondisplaced fracture of her distal femur. Patient has been nonambulatory for at least a year. Her family is at bed side. She is currently comfort care only. At this point, she complaining of left knee pain denies pain distally in her leg. Does complain of mild hip pain as well. Denies any systemic symptoms at this time. Review of Systems ROS Status of ROS 10 or more systems reviewed and unremarkable except as noted in history and below [facility] Medical History (Updated 11/29/24 @ 09:15 by Herb Han MD) Former smoker ?Z87.891 - Personal history of nicotine dependence (ICD-10) COPD (chronic obstructive pulmonary disease) ?J44.9 - Chronic obstructive pulmonary disease, unspecified (ICD-10) Hyperlipemia ?E78.5 - Hyperlipidemia, unspecified (ICD-10) History of broken leg ?Z87.81 - Personal history of (healed) traumatic fracture (ICD-10) Dementia ?F03.90 - Unspecified dementia, unspecified severity, without behavioral disturbance, psychotic disturbance, mood disturbance, and anxiety (ICD-10) DNR no code (do not resuscitate) ?Z66 - Do not resuscitate (ICD-10) Surgical History (Updated 11/27/24 @ 23:49 by Cesilia Pedroza RN) History of hip replacement ?Z96.649 - Presence of unspecified artificial hip joint (ICD-10) Family History (Updated 11/27/24 @ 22:33 by Cesilia Pedroza RN) Father Family history of myocardial infarction Sister Family history of cancer Other Family history of CHF (congestive heart failure) Social History (Updated 11/27/24 @ 22:34 by Cesilia Pedroza RN) Within the past year, how often did you have a drink containing alcohol: never Score interpretation: A score less than 3 is consistent with normal alcohol consumption. Smoking status: Former smoker Non-prescribed substance use: denies use Highest level of school completed/degree received: 10th grade Are you now , , , , never or living with a partner: In a typical week, how many times do you talk on the telephone with family, friends, or neighbors: 3 or more times per week How often do you get together with friends or relatives: 3 or more times per week Gender Identity: female Meds Home Medications and Allergies Home Medications ?Medication ?Instructions ?Recorded ?Confirmed ?Type acetaminophen 325 mg capsule 650 mg PO Q6H PRN fever or pain 11/27/24 11/27/24 History apixaban 2.5 mg tablet (Eliquis) 2.5 mg PO BID 11/27/24 11/27/24 History Held on 12/03/24. Instructions: Resume on 12/06/24. diltiazem HCl 240 mg 240 mg PO DAILY 11/27/24 11/27/24 History capsule,extended release 24 hr (Cardizem CD) duloxetine 60 mg capsule,delayed 60 mg PO DAILY 11/27/24 11/27/24 History release gabapentin 300 mg capsule 600 mg PO TID 11/27/24 11/27/24 History guaifenesin 600 mg tablet, 600 mg PO BID 11/27/24 11/27/24 History extended release 12 hr (Mucinex) levothyroxine 112 mcg capsule 112 mcg PO DAILY 11/27/24 11/27/24 History lorazepam 0.5 mg tablet 0.25 mg PO Q4H PRN agitation 11/27/24 11/27/24 History metoprolol tartrate 50 mg tablet 50 mg PO BID 11/27/24 11/27/24 History sertraline 100 mg tablet 100 mg PO DAILY 11/27/24 11/27/24 History trazodone 50 mg tablet 50 mg PO QPM PRN sleep 11/27/24 11/27/24 History nirmatrelvir 300 mg (150 mg 1 ea PO .as directed #30 ea 11/29/24 Rx x2)-ritonavir 100 mg tablet,dose pack (Paxlovid) nirmatrelvir 300 mg (150 mg 1 ea PO .as directed #30 ea 11/29/24 Rx x2)-ritonavir 100 mg tablet,dose pack (Paxlovid) amoxicillin 500 mg-potassium 1 tab PO BID #6 tabs 12/03/24 Rx clavulanate 125 mg tablet (Augmentin) enoxaparin 60 mg/0.6 mL 60 mg (0.6 mL) subcut BID 2 days 12/03/24 Rx subcutaneous syringe #2.4 mL morphine concentrate 100 mg/5 mL 15 mg (0.75 mL) sublingual TID #30 12/03/24 Rx (20 mg/mL) oral solution mL oxycodone 5 mg tablet 2.5 mg (1/2 x 5 mg) PO Q4H PRN 12/03/24 Rx pain 3 days #10 tabs Allergies Allergy/AdvReac Type Severity Reaction Status Date / Time No Known Drug Allergies Allergy Verified 11/27/24 15:26 Exam Narrative Exam Narrative: Patient resting comfortably in bed, answering questions appropriately, no acute distress. Examination of the left lower extremity shows tenderness to palpation over the distal femur. No tenderness over the anterior aspect of the hip or the femur. No active motion seen in the left lower extremity with respect to the knee and hip. Neurovascular intact Constitutional Vital Signs, click to edit/add: Last Vital Signs Temp 97.3 F L 11/29/24 07:13 Pulse 104 H 11/29/24 07:13 Resp 18 11/29/24 07:13 BP 112/58 11/29/24 07:13 Pulse Ox 93 L 11/29/24 07:13 O2 Del Method Nasal Cannula 11/29/24 07:13 O2 Flow Rate 2 11/29/24 07:13 Results Labs Labs: Abnormal lab results 11/28/24 11/28/24 11/29/24 Range/Units 15:23 15:50 04:57 RBC 3.51 L (4.20-5.40) 10^6/uL Hgb 11.0 L (12.0-16.0) g/dL Hct 33.6 L (36.0-48.0) % RDW 15.7 H (11.0-15.0) % Chloride 108 H (98-107) mmol/L Glucose 187 H (74-106) mg/dL ALT 106 H (14-59) U/L Alkaline Phosphatase 155 H (46-116) U/L Ammonia <10 L (11-32) umol/L Total Protein 6.2 L (6.4-8.2) g/dL Albumin 1.9 L (3.4-5.0) g/dL SARS-CoV-2 Ag (CV2AG) Positive A (NEGATIVE) H & H 11/27/24 11/29/24 Range/Units 19:44 04:57 Hgb 13.1 11.0 L (12.0-16.0) g/dL Hct 39.6 33.6 L (36.0-48.0) % All other labs normal. Diagnostic results Hip x-ray: other (Three-view radiographs of the left femur shows nondisplaced fracture of the medial condyle of the distal femur. CT scan of the left knee displays nondisplaced fracture of the medial condyle of the distal femur.) Assessment and Plan Assessment and Plan (1) Admission for end of life care: (2) Femoral condyle fracture: Assessment and Plan: Cullen is nonambulatory 89year old female. She is currently comfort care. I had a long discussion with family about treatment options and we agreed to proceed with conservative management. She will wear knee immobilizer for comfort. Pain control per primary. I am happy to see her in office for follow up but not necessary. They will contact my office with questions. Qualifiers: Encounter type: initial encounter Fracture alignment: nondisplaced Fracture type: closed Laterality: left Qualified Code(s): S72.415A - Nondisplaced unspecified condyle fracture of lower end of left femur, initial encounter for closed fracture (3) Fever: (4) Bedbound: (5) Sepsis: (6) Elevated LFTs:
[2024-11-29 08:40] LABS: A. calcoaceticus-baumannii Cpx NOT DETECTED (NOT DETECTE); Bacteroides fragilis NOT DETECTED (NOT DETECTE); Enterobacterales NOT DETECTED (NOT DETECTE); Enterococcus faecalis NOT DETECTED (NOT DETECTE); Enterococcus faecium NOT DETECTED (NOT DETECTE); Klebsiella aerogenes NOT DETECTED (NOT DETECTE); Klebsiella pneumoniae group NOT DETECTED (NOT DETECTE); Proteus spp. NOT DETECTED (NOT DETECTE); Salmonella spp. NOT DETECTED (NOT DETECTE); Serratia marcescens NOT DETECTED (NOT DETECTE); Staphylococcus epidermidis NOT DETECTED (NOT DETECTE); Staphylococcus lugdunensis NOT DETECTED (NOT DETECTE); Streptococcus pyogenes NOT DETECTED (NOT DETECTE); Streptococcus spp. NOT DETECTED (NOT DETECTE)
[2024-11-29 08:41] LABS: Candida auris NOT DETECTED (NOT DETECTE); Candida glabrata NOT DETECTED (NOT DETECTE); Stenotrophomonas maltophilia NOT DETECTED (NOT DETECTE)
--- NOTE | 2024-11-29 08:56 | SWNOTE1 ---
FLORINA did call pt's son Sunny. Sunny was aware of covid positive. FLORINA advised that SW spoke to Will this morning and Will told SW they were working on other facilities and mentioned the [facility]. Will also stated [facility] could not accept. Sunny did ask SW if we are discharging her today? FLORINA advised that we would move forward with discharge today and that medically we had no reason to keep her here. Will did voice his frustrations to FLORINA. Let FLORINA know this is a knee jerk reaction and that she has improved over last day and she may have underlying medical issues. Sunny told SW that we need to find a code to keep her here and voiced he does not want her to be discharged at this time. He voiced the healthcare system is a joke and all about money. FLORINA did ask Sunny if he would like the physician to call him? Sunny is in agreement with this. Sunny also voiced frustrations with covid and the isolation period. FLORINA sent message to case management who is with physician, requesting Dr. Han call pt's son Sunny.
--- NOTE | 2024-11-29 09:14 | P.PN_ITS ---
Progress Note: Subjective Subjective Interval history: Uneventful night. The patient is feeling fairly well this morning. She denies any chest or abdominal pain only when I palpate her abdomen. She has a dry cough. She tested positive for COVID Exam Narrative Exam Narrative: Patient is lying in bed. Coughing. Is morbidly obese. Pale skin buccal Koza. Chest exam revealed fine rhonchi. Heart is regular. Abdomen soft, diffuse tenderness. Lower extremities trace pitting edema. Effusion and tenderness over the left knee. Functional status is consistent with the complaint bedbound. Patient is unable to change position in bed either. She has been bedbound for a year and a half. Constitutional Vital Signs, click to edit/add: Last Vital Signs Temp 97.3 F L 11/29/24 07:13 Pulse 104 H 11/29/24 07:13 Resp 18 11/29/24 07:13 BP 112/58 11/29/24 07:13 Pulse Ox 93 L 11/29/24 07:13 O2 Del Method Nasal Cannula 11/29/24 07:13 O2 Flow Rate 2 11/29/24 07:13 Progress Note: Objective Labs Labs: Short CBC 11/29/24 Range/Units 04:57 WBC 10.2 (4.0-11.0) 10^3/uL Hgb 11.0 L (12.0-16.0) g/dL Hct 33.6 L (36.0-48.0) % Plt Count 226 (150-450) 10^3/uL BMP 11/29/24 04:57 Sodium 141 Potassium 3.9 Chloride 108 H Carbon Dioxide 26.4 BUN 12.0 Creatinine 0.69 Glucose 187 H Calcium 8.7 Liver Function 11/29/24 Range/Units 04:57 Total Bilirubin 0.4 (0.2-1.0) mg/dL Direct Bilirubin 0.1 (0.0-0.2) mg/dL AST 28 (15-37) U/L ALT 106 H (14-59) U/L Alkaline Phosphatase 155 H (46-116) U/L Albumin 1.9 L (3.4-5.0) g/dL Progress Note: A&P Assessment and Plan (1) Admission for end of life care: (2) Femoral condyle fracture: Qualifiers: Encounter type: initial encounter Fracture alignment: nondisplaced Fracture type: closed Laterality: left Qualified Code(s): S72.415A - No ndisplaced unspecified condyle fracture of lower end of left femur, initial encounter for closed fracture (3) Fever: (4) Bedbound: (5) Sepsis: (6) Elevated LFTs: (7) COVID: Plan Left femoral fracture Patient was seen by Dr. Mustafa who recommended CT read. He did not recommend any surgical intervention but knee brace and conservative management. Fever, unknown source. UA is negative. Patient tested positive for COVID. 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 Patient has elevation of the transaminases. Normal bilirubin Blood cultures pending CAT scan of the abdomen does not show any acute or infectious process in the abdomen. I initially started patient on intravenous antibiotic empirically. I will stop today. Fever is likely caused by COVID-19 infection Vascular dementia with worsening disorientation and confusion according to her family. Back to baseline according to her son. Likely secondary to metabolic and septic encephalopathy. Requested check ammonia level. Ammonia levels normal CAT scan of the head showed brain atrophy but no acute intracranial process Patient is much more awake today on presentation to ER. Son stated that patient is back to baseline state. Elevated transaminase. No tenderness in the right upper quadrant. Patient has diffuse tenderness in the abdomen. No guarding or rebound Previous history of cholecystectomy. CAT scan showed normal liver. I suspect that her LFTs elevation could be related to COVID-19 infection or medication side effect. Patient is on Tylenol, statin and SSRI which all can cause elevation of the liver transaminase. Holding some offensive medication. Transaminase are trending down Patient technically would require additional diagnostic and therapeutic intervention for this however she is a DNR CC with hospice. Her son made it clear that he does not want aggressive diagnostic or therapeutic intervention other than would send in for comfort Anticoagulation. Patient is on Eliquis at home 2.5 mg twice a day. Not sure why she is on Eliquis. Not sure if she had any previous DVT or PE or paroxysmal A-fib She could be on it due to bedbound status and reduce risk of having DVT Continue Eliquis at this time. No clinical evidence of active bleed. Functional disability, bedbound status Patient has been under the hospice care for a year or so according to the son Goals of care discussion and advance care planning completed on 11/28. I spent about 30 minutes discussing this with the son who is the power of real estate associate attorney. We discussed her condition, status and treatment plan. We discussed and explained the difference between aggressive versus comfort care approach Son requested in basic terms not to put his mom through any aggressive diagnostic or therapeutic intervention. He requested care that is intended for comfort and comfort care only. Son does not feel comfortable patient living at home under the supervision of private pay and her daughter. Son is requesting [facility] to [facility] living private pay. Once again comfort is the goal according to her son Urinary Catheter Management Urinary Catheter Management Urethral: Cath placed during this visit: yes Urethral indwelling: No Insertion date: 11/27/24 Insertion time: 23:51
[2024-11-29 09:53] LABS: Source Blood; Staphylococcus spp. DETECTED (NOT DETECTE)
[2024-11-29] MEDS: METOPROLOL TARTRATE 25 MG TABLET PO ×2 (09:54→22:09)
--- NOTE | 2024-11-29 12:34 | SWNOTE1 ---
FLORINA did receive HCPOA paperwork from Tara at [facility]. FLORINA did place this on the chart. FLORINA stopped in and spoke with pt's son in regards to discharge plans, he was in pt's room. Sunny is requesting that pt would be able to stay at hospital until Monday. He voiced he will get arrangements made for a private caregiver to be coming in and he will take her to his home. He voiced he does not want her to go to [place] and then have to move her to the [facility] once she is out of the isolation period. He will then get her to the [facility] once the isolation period is complete. Sunny did ask SW questions in regards to IV fluids and her temperature. FLORINA was not able to answer but did advise that the physician will be in to speak with him. Sunny also voiced that he does not feel this is her baseline and due to fracture and covid she is not herself. Sunny did voiced he has to be an advocate for patient. Sunny did spoke about frustration with his sister and that he has to do this alone and does not feel he can trust his sister. Sunny had no further question for FLORINA at this time. Sunny would like to speak with physician. FLORINA did message Dr. Han in regards to conversation SW had with pt's son and that Sunny would like to speak to him.
--- NOTE | 2024-11-29 12:38 | PM.EN ---
Event Note Event Note: I had a meeting with her son regarding plan of care. I gave him update on her condition, status and treatment plan. I informed him about his mom testing positive for COVID yesterday. He is requesting to initiate antiviral treatment and cortisone. I told him that I started Decadron yesterday. We discussed Paxlovid risk and benefit. We discussed Paxlovid the potential interaction with current meds that she is on including Eliquis and trazodone. He understood the potential benefit and risk. He is requesting to initiate Paxlovid treatment. Paxlovid is not available on formulary. He is in agreement to pickle pumper Paxlovid from drug [facility] in [place] and bring for patient to take while in hospital. Furthermore, he does not want his mom to go to the [place] at this time. He wants her to go to his house on Monday until he is able to arrange for her to be admitted to the [facility] long-term. Son is very appreciative of the care that his mom is receiving here at [facility].
--- NOTE | 2024-11-29 14:34 | SWNOTE1 ---
Pt will be staying at hospital until Monday. Plan is for Sunny to take pt home with private caregivers coming in on Monday. He will keep pt at the home until she is out of her 10 day isolation period. Sunny will then get her in to the [facility]. FLORINA emailed Tara and Will at [facility] with the updated plan. FLORINA then called Robyn at [facility] and let her know the updated plan of pt coming to [facility] once she is out of isolation and she will be going home on Monday with son. She voiced that should be fine and she will stay in touch with Will at [facility] and with the son Sunny as well.
[2024-11-29 15:04] VITALS: BP 111/61; PULSE 99; TEMP 36.5; O2SAT 93
[2024-11-29 20:00] VITALS: BP 123/67; PULSE 103; TEMP 36.3; O2SAT 94
[2024-11-29] MEDS: PAXLOVID 2 EACH PO (22:09)
[2024-11-30] VITALS: BP 141/78; PULSE 100; TEMP 36.6; O2SAT 94
[2024-11-30 04:00] VITALS: BP 149/80; PULSE 106; TEMP 36.2; O2SAT 96
[2024-11-30] MEDS: LEVOTHYROXINE SODIUM 112 MCG TABLET PO (06:05)
[2024-11-30] MEDS: ACETAMINOPHEN 325 MG TABLET 650 MG PO ×2 (06:10→20:52)
--- NOTE | 2024-11-30 08:48 | PM.PN ---
Progress Note: Subjective Subjective Interval history: Patient is lying in bed crying. Patient stated that she feels miserable. She is hurting everywhere from head to toe. Everywhere I asked her if it hurts chest, abdomen, joints she replied yes. Exam Narrative Exam Narrative: Patient appears to be uncomfortable. She is crying. She is coughing. She is tender everywhere I touch her including her shoulders, elbow, chest, abdomen and lower extremities Chest exam revealed bilateral crackles. Heart is irregular and slightly tachycardic. Abdomen is diffusely tender. The lower extremities trace pitting edema. Tender and swollen left knee. Constitutional Vital Signs, click to edit/add: Last Vital Signs Temp 97.1 F L 11/30/24 04:00 Pulse 106 H 11/30/24 04:00 Resp 18 11/30/24 04:00 BP 149/80 H 11/30/24 04:00 Pulse Ox 96 11/30/24 04:00 O2 Del Method Nasal Cannula 11/30/24 04:00 O2 Flow Rate 2 11/30/24 04:00 Progress Note: A&P Assessment and Plan (1) Admission for end of life care: (2) Femoral condyle fracture: Qualifiers: Encounter type: initial encounter Fracture alignment: nondisplaced Fracture type: closed Laterality: left Qualified Code(s): S72.415A - Nondisplaced unspecified condyle fracture of lower end of left femur, initial encounter for closed fracture (3) Fever: (4) Bedbound: (5) Sepsis: (6) Elevated LFTs: (7) COVID: Plan Left femoral fracture Ortho Dr. Mustafa did not recommend any surgical intervention but knee brace and conservative management. Fever, unknown source. UA is negative. Patient tested positive for COVID. 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 Patient has elevation of the transaminases. Normal bilirubin. Liver transaminases are trending down toward normal Blood cultures. 1 culture is positive for staph. No resistant pattern. CAT scan of the abdomen does not show any acute or infectious process in the abdomen. Continue IV antibiotic pending final sensitivity For send requested to start her on Paxlovid. Paxlovid not available here at [facility]. I had called into [facility] pharmacy. Son was made aware of potential interaction with Eliquis and statin. He requested to stop Eliquis at this time even after I explained risk associated with. Vascular dementia with worsening disorientation and confusion according to her family. Back to baseline according to her son. Likely secondary to metabolic and septic encephalopathy. Requested check ammonia level. Ammonia levels normal CAT scan of the head showed brain atrophy but no acute intracranial process Patient is much more awake today on presentation to ER. Son stated that patient is back to baseline state. Elevated transaminase. No tenderness in the right upper quadrant. Patient has diffuse tenderness in the abdomen. No guarding or rebound Previous history of cholecystectomy. CAT scan showed normal liver. I suspect that her LFTs elevation could be related to COVID-19 infection or medication side effect. Patient is on Tylenol, statin and SSRI which all can cause elevation of the liver transaminase. Holding some offensive medication. Transaminase are trending down Patient technically would require additional diagnostic and therapeutic intervention for this however she is a DNR CC with hospice. Her son made it clear that he does not want aggressive diagnostic or therapeutic intervention other than would send in for comfort Anticoagulation. Patient is on Eliquis at home 2.5 mg twice a day. Her heart is irregular today suspecting A-fib EKG today She could be on it due to bedbound status and reduce risk of having DVT Her son requested to stop Eliquis while she is taking Paxlovid. He is aware of potential risk and implication. No clinical evidence of active bleed. Functional disability, bedbound status Patient has been under the hospice care for a year or so according to the son Goals of care discussion and advance care planning completed on 11/28. I spent about 30 minutes discussing this with the son who is the power of district attorney. We discussed her condition, status and treatment plan. We discussed and explained the difference between aggressive versus comfort care approach Son requested in basic terms not to put his mom through any aggressive diagnostic or therapeutic intervention. He requested care that is intended for comfort and comfort care only. Son does not feel comfortable patient living at home under the supervision of private pay and her daughter. Son is requesting discharge to assisted, long-term residential living private pay. Once again comfort is the goal according to her son Urinary Catheter Management Urinary Catheter Management Urethral: Cath placed during this visit: yes Urethral indwelling: No Insertion date: 11/27/24 Insertion time: 23:51
--- NOTE | 2024-11-30 08:54 | ECG_ITS ---
[facility] Test Date: 2024-11-30 Pat Name: MICHELLE GUERRIER Department: Room: [facility] Gender: Female Currency Counter: : [id number] Requested By: [id number] Order Number: [id number] Reading MD: AYLEEN PATEL Measurements Intervals [place] Rate: 121 P: MT: QRS: 7 QRSD: 75 T: 27 QT: 316 QTc: 449 Interpretive Statements ATRIAL FIBRILLATION WITH RAPID VENTRICULAR RESPONSE NONSPECIFIC ST & T-WAVE ABNORMALITY ABNORMAL RHYTHM ECG No previous ECG available for comparison Electronically Signed On 12-04-2024 13:30:19 EDT by AYLEEN PATEL
--- NOTE | 2024-11-30 08:58 | PM.EN ---
Event Note Event Note: Patient is moaning and crying from pain. Pain all over. Tender over Patient is a DNR CC and hospice. Son wants comfort care approach. I started her on scheduled dose of oral morphine. She was on morphine before at home to hospice
[2024-11-30] MEDS: DEXAMETHASONE SOD PHOS 4 MG/ML VIAL 6 MG IV (09:42)
[2024-11-30] MEDS: METOPROLOL TARTRATE 50 MG TABLET PO ×2 (09:43→20:52)
[2024-11-30] MEDS: ENOXAPARIN SODIUM 60 MG/0.6 ML SYRINGE SUBQ ×2 (09:43→21:08)
[2024-11-30] MEDS: SERTRALINE HCL 50 MG TABLET PO (09:43)
[2024-11-30] MEDS: GABAPENTIN 300 MG CAPSULE PO ×2 (09:43→20:52)
[2024-11-30] MEDS: PAXLOVID 2 EACH PO ×2 (09:43→20:53)
[2024-11-30] MEDS: MORPHINE SULFATE 20 MG/ML ORAL CONCENTRATE BOTTLE 10 MG SL ×3 (09:46→21:00)
[2024-11-30 09:56] LABS: Hematocrit 33.8 % (36.0-48.0); Hemoglobin 11.3 g/dL (12.0-16.0); Mean Corpuscular HGB Conc 33.4 g/dL (29.9-35.2); Mean Corpuscular Hemoglobin 31.1 pg (26.7-34.0); Mean Corpuscular Volume 93.1 fL (81.0-99.0); Platelet Count 351 10^3/uL (150-450); Red Blood Count 3.63 10^6/uL (4.20-5.40); White Blood Count 16.5 10^3/uL (4.0-11.0)
[2024-11-30 10:02] LABS: Alanine Aminotransferase 85 U/L (14-59); Albumin Globulin Ratio 0.4; Albumin Level 2.1 g/dL (3.4-5.0); Alkaline Phosphatase 134 U/L (46-116); Anion Gap 15.1; Aspartate Amino Transferase 23 U/L (15-37); Blood Urea Nitrogen 14.0 mg/dL (7.0-18.0); Calcium 9.2 mg/dL (8.5-10.1); Carbon Dioxide 27.5 mmol/L (21.0-32.0); Chloride 106 mmol/L (98-107); Estimated GFR (African America >60 (>=60 mL/min/1.73m^2); Estimated GFR (Non-African Ame >60 (>=60 mL/min/1.73m^2); Globulin 4.8 g/dL; Glucose 114 mg/dL (74-106); Potassium 3.6 mmol/L (3.5-5.1); Sodium 145 mmol/L (136-145); Total Protein 6.9 g/dL (6.4-8.2)
[2024-11-30 10:03] VITALS: BP 150/79; PULSE 97; TEMP 36.2; O2SAT 92
--- NOTE | 2024-11-30 12:09 | PC.NURSE ---
daughter was at bedside briefly. Son called and screenplay writer updated him on patients condition
[2024-11-30 14:40] VITALS: BP 133/66; PULSE 87; TEMP 36.7; O2SAT 93
[2024-11-30 19:17] VITALS: BP 145/73; PULSE 75; TEMP 36.4; O2SAT 94
[2024-12-01] MEDS: LEVOTHYROXINE SODIUM 112 MCG TABLET PO (06:24)
[2024-12-01] MEDS: MORPHINE SULFATE 20 MG/ML ORAL CONCENTRATE BOTTLE 10 MG SL ×3 (06:25→22:04)
[2024-12-01 08:00] VITALS: BP 150/70; PULSE 73; TEMP 36.1; O2SAT 98
[2024-12-01] MEDS: DEXAMETHASONE SOD PHOS 4 MG/ML VIAL 6 MG IV (08:16)
[2024-12-01] MEDS: METOPROLOL TARTRATE 50 MG TABLET PO ×2 (08:16→22:01)
[2024-12-01] MEDS: ENOXAPARIN SODIUM 60 MG/0.6 ML SYRINGE SUBQ ×2 (08:16→22:01)
[2024-12-01] MEDS: GABAPENTIN 300 MG CAPSULE PO ×2 (08:17→22:01)
[2024-12-01] MEDS: SERTRALINE HCL 50 MG TABLET PO (08:18)
[2024-12-01] MEDS: PAXLOVID 2 EACH PO ×2 (08:19→22:02)
--- NOTE | 2024-12-01 09:49 | P.PN_ITS ---
Progress Note: Subjective Subjective Interval history: Patient is lying in bed crying. Patient certainly appears to be much more comfortable than yesterday. She reported that she is feeling better than yesterday. She denies any pain other than her left knee. Poor appetite. Nurse stated that she had a bowel movement. Exam Narrative Exam Narrative: Patient appears to be comfortable today. She was sleeping when I entered the room. I was able to wake her up. She denies any pain other than the left knee pain. Her cough is less prominent and harsh than before. Chest exam revealed bilateral crackles. Heart is irregular and slightly tachycardic. Abdomen is nontender today. The lower extremities trace pitting edema. Tender and swollen left knee. Bedbound. Unable to change position in bed. Constitutional Vital Signs, click to edit/add: Last Vital Signs Temp 97.0 F L 12/01/24 08:00 Pulse 73 12/01/24 08:00 Resp 16 12/01/24 08:00 BP 150/70 H 12/01/24 08:00 Pulse Ox 98 12/01/24 08:00 O2 Del Method Nasal Cannula 12/01/24 08:00 O2 Flow Rate 2 12/01/24 08:00 Progress Note: Objective Labs Labs: Short CBC 11/30/24 Range/Units 09:36 WBC 16.5 H (4.0-11.0) 10^3/uL Hgb 11.3 L (12.0-16.0) g/dL Hct 33.8 L (36.0-48.0) % Plt Count 351 (150-450) 10^3/uL BMP 11/30/24 09:36 Sodium 145 Potassium 3.6 Chloride 106 Carbon Dioxide 27.5 BUN 14.0 Creatinine 0.65 Glucose 114 H Calcium 9.2 Liver Function 11/30/24 Range/Units 09:36 Total Bilirubin 0.6 (0.2-1.0) mg/dL Direct Bilirubin 0.1 (0.0-0.2) mg/dL AST 23 (15-37) U/L ALT 85 H (14-59) U/L Alkaline Phosphatase 134 H (46-116) U/L Albumin 2.1 L (3.4-5.0) g/dL Progress Note: A&P Assessment and Plan (1) Admission for end of life care: (2) Femoral condyle fracture: Qualifiers: Encounter type: initial encounter Fracture alignment: nondisplaced Fracture type: closed Laterality: left Qualified Code(s): S72.415A - Nondisplaced unspecified condyle fracture of lower end of left femur, initial encounter for closed fracture (3) Fever: (4) Bedbound: (5) Sepsis: (6) Elevated LFTs: (7) COVID: Plan Left femoral fracture Ortho Dr. Mustafa did not recommend any surgical intervention but knee brace and conservative management. Fever, UA is negative. Her white count is high which could be secondary to Decadron that was started for COVID. Patient tested positive for COVID. COVID-19 infection which is likely the source of infection Bacteremia. 1 out of 2 blood culture positive for staph. No evidence of resistance thus far. Hypoxic respiratory failure, likely secondary to COVID, probable restrictive lung disease due to bedbound situation and obesity Started patient on Decadron. Patient has elevation of the transaminases. Normal bilirubin. Liver transaminases are trending down toward normal Blood cultures. 1 culture is positive for staph. No resistant pattern. CAT scan of the abdomen does not show any acute or infectious process in the abdomen. Continue IV antibiotic pending final sensitivity and depending repeated blood culture report. her son requested to start her on Paxlovid. Paxlovid not available here at [facility]. I had called into [facility] pharmacy. Son was made aware of potential interaction with Eliquis and statin. He requested to stop Eliquis at this time even after I explained risk associated with. Vascular dementia with worsening disorientation and confusion according to her family. Back to baseline according to her son. Likely secondary to metabolic and septic encephalopathy. Requested check ammonia level. Ammonia levels normal CAT scan of the head showed brain atrophy but no acute intracranial process Patient is much more awake today on presentation to ER. Son stated that patient is back to baseline state. Elevated transaminase. No tenderness in the right upper quadrant. Patient has diffuse tenderness in the abdomen. No guarding or rebound Previous history of cholecystectomy. CAT scan showed normal liver. I suspect that her LFTs elevation could be related to COVID-19 infection or medication side effect. Patient is on Tylenol, statin and SSRI which all can cause elevation of the liver transaminase. Holding some offensive medication. Transaminase are trending down Patient technically may require additional diagnostic and therapeutic intervention for this however she is a DNR CC with hospice. Her son made it clear that he does not want aggressive diagnostic or therapeutic intervention other than would send in for comfort Anticoagulation. Patient is on Eliquis at home 2.5 mg twice a day. Her heart is irregular today suspecting A-fib EKG confirmed evidence of A-fib. Rate is controlled after increasing her beta- brandi dose Her son requested to initiate Paxlovid for COVID. I informed him about potential drug?drug interaction with Eliquis and a statin. I explained the benefit and risk of each medication. Her son requested to stop Eliquis while she is taking Paxlovid. He is aware of potential risk and implication. No clinical evidence of active bleed. Functional disability, bedbound status Patient has been under the hospice care for a year or so according to the son Moderate protein calorie malnutrition Low albumin Chronic medical conditions not listed above, incidental findings seen on labs and imaging. These would need to be addressed. Could be addressed when time and condition are appropriate. Could be addressed in the outpatient setting by PCP collaboration with other needed outpatient providers. Goals of care discussion and advance care planning completed on 11/28. I spent about 30 minutes discussing this with the son who is the power of corporate associate attorney. We discussed her condition, status and treatment plan. We discussed and explained the difference between aggressive versus comfort care approach Son requested in basic terms not to put his mom through any aggressive diagnostic or therapeutic intervention. He requested care that is intended for comfort and comfort care only. Son does not feel comfortable patient living at home under the supervision of private pay and her daughter. Son is requesting discharge to jail, long-term residential living private pay. Once again comfort is the goal according to her son Urinary Catheter Management Urinary Catheter Management Urethral: Cath placed during this visit: yes Urethral indwelling: No Insertion date: 11/27/24 Insertion time: 23:51
[2024-12-01 17:00] VITALS: BP 161/72; PULSE 86; TEMP 36.7; O2SAT 98
[2024-12-01 20:00] VITALS: BP 147/86; PULSE 110; TEMP 36.1; O2SAT 93
[2024-12-02] VITALS: BP 136/78; PULSE 90; TEMP 36.3; O2SAT 96
[2024-12-02 04:00] VITALS: BP 135/79; PULSE 89; TEMP 36.6; O2SAT 97
[2024-12-02] MEDS: LEVOTHYROXINE SODIUM 112 MCG TABLET PO (06:02)
[2024-12-02] MEDS: MORPHINE SULFATE 20 MG/ML ORAL CONCENTRATE BOTTLE 10 MG SL ×3 (06:03→21:22)
--- NOTE | 2024-12-02 09:02 | P.PN_ITS ---
Progress Note: Subjective Subjective Interval history: Uneventful night. Patient stated that she had a good night. No issues reported by nursing staff. Patient is lying in bed crying. Patient certainly appears to be much more comfortable than yesterday. She reported that she is feeling better than yesterday. She denies any pain other than her left knee. Poor appetite. Nurse stated that she had a bowel movement. Exam Narrative Exam Narrative: Patient appears to be comfortable today. She is awake, no distress. She denies any pain other than the left knee pain. Her cough is less prominent and harsh than before. Chest exam revealed bilateral crackles much less intense than previously noted. Heart is irregular and slightly tachycardic. Abdomen is nontender today. The lower extremities trace pitting edema. Tender and swollen left knee. Bedbound. Unable to change position in bed. Constitutional Vital Signs, click to edit/add: Last Vital Signs Temp 97.8 F 12/02/24 04:00 Pulse 89 12/02/24 04:00 Resp 20 12/02/24 04:00 BP 135/79 12/02/24 04:00 Pulse Ox 97 12/02/24 04:00 O2 Del Method Room Air 12/02/24 04:00 O2 Flow Rate 2 12/01/24 08:00 Progress Note: A&P Assessment and Plan (1) Admission for end of life care: (2) Femoral condyle fracture: Qualifiers: Encounter type: initial encounter Fracture alignment: nondisplaced Fracture type: closed Laterality: left Qualified Code(s): S72.415A - Nondisplaced unspecified condyle fracture of lower end of left femur, initial encounter for closed fracture (3) Fever: (4) Bedbound: (5) Sepsis: (6) Elevated LFTs: (7) COVID: Plan Left femoral fracture Ortho Dr. Mustafa did not recommend any surgical intervention but knee brace and conservative management. COVID-19 upper respiratory infection. Bacteremia. 1 out of 2 blood culture positive for staph hominis. Repeat blood cultures pending. Hypoxic respiratory failure, likely secondary to COVID, probable restrictive lung disease due to bedbound situation and obesity. Much improved. Patient is on room air Continue Decadron for 10 days Continue IV antibiotic pending final sensitivity and depending repeated blood culture report. her son requested to start her on Paxlovid. Paxlovid not available here at [facility]. I had called into [facility] pharmacy. Son was made aware of potential interaction with Eliquis and statin. He requested to stop Eliquis at this time even after I explained risk associated with. Patient potentially could be discharged back home with her son tomorrow if the repeat blood culture is negative Vascular dementia with worsening disorientation and confusion according to her family. Back to baseline according to her son. Likely secondary to metabolic and septic encephalopathy. Requested check ammonia level. Ammonia levels normal CAT scan of the head showed brain atrophy but no acute intracranial process Patient is much more awake today on presentation to ER. Son stated that patient is back to baseline state. Elevated transaminase. No tenderness in the right upper quadrant. Patient has diffuse tenderness in th e abdomen. No guarding or rebound Previous history of cholecystectomy. CAT scan showed normal liver. I suspect that her LFTs elevation could be related to COVID-19 infection or medication side effect. Patient is on Tylenol, statin and SSRI which all can cause elevation of the liver transaminase. Holding some offensive medication. Transaminase are trending down Patient technically may require additional diagnostic and therapeutic intervention for this however she is a DNR CC with hospice. Her son made it clear that he does not want aggressive diagnostic or therapeutic intervention other than would send in for comfort Anticoagulation for A-fib. Patient has been on Eliquis at home 2.5 mg twice a day. Her son requested to initiate Paxlovid for COVID. I informed him about potential drug?drug interaction with Eliquis and a statin. I explained the benefit and risk of each medication. Her son requested to stop Eliquis while she is taking Paxlovid. He is aware of potential risk and implication. Continue beta-brandi for rate control Functional disability, bedbound status Patient has been under the hospice care for a year or so according to the son Moderate protein calorie malnutrition Low albumin Chronic medical conditions not listed above, incidental findings seen on labs and imaging. These would need to be addressed. Could be addressed when time and condition are appropriate. Could be addressed in the outpatient setting by PCP collaboration with other needed outpatient providers. Goals of care discussion and advance care planning completed on 11/28. I spent about 30 minutes discussing this with the son who is the power of criminal defense attorney. We discussed her condition, status and treatment plan. We discussed and explained the difference between aggressive versus comfort care approach Son requested in basic terms not to put his mom through any aggressive diagnostic or therapeutic intervention. He requested care that is intended for comfort and comfort care only. Son does not feel comfortable patient living at home under the supervision of private pay and her daughter. Son is requesting discharge to retirement, long-term residential living private pay. Once again comfort is the goal according to her son Disposition Patient had been living with her daughter in [facility] for the last 2 months. Patient has been under hospice care for the last year and a half. Son Sunny put hospice care on hold temporarily. He requested to continue DNRCC status. Sunny is requesting to discharge patient to his home in [facility] for a few weeks [facility]. Potentially patient could be discharged tomorrow if repeat blood culture is negative. Urinary Catheter Management Urinary Catheter Management Urethral: Cath placed during this visit: yes Urethral indwelling: No Insertion date: 11/27/24 Insertion time: 23:51
[2024-12-02] MEDS: GABAPENTIN 300 MG CAPSULE PO ×2 (09:19→21:18)
[2024-12-02] MEDS: SERTRALINE HCL 50 MG TABLET PO (09:19)
[2024-12-02] MEDS: DEXAMETHASONE SOD PHOS 4 MG/ML VIAL 6 MG IV (09:19)
[2024-12-02] MEDS: METOPROLOL TARTRATE 50 MG TABLET PO ×2 (09:19→21:18)
[2024-12-02] MEDS: PAXLOVID 2 EACH PO ×2 (09:20→21:18)
[2024-12-02] MEDS: ENOXAPARIN SODIUM 60 MG/0.6 ML SYRINGE SUBQ ×2 (09:20→21:18)
[2024-12-02 09:32] VITALS: BP 151/89; PULSE 57; TEMP 36.3; O2SAT 94
[2024-12-02 16:38] VITALS: BP 128/68; PULSE 56; TEMP 36.6; O2SAT 98
[2024-12-02 19:48] VITALS: BP 147/89; PULSE 78; TEMP 36.4; O2SAT 94
[2024-12-03] VITALS: BP 167/81; PULSE 88; TEMP 36.1; O2SAT 98
[2024-12-03 03:54] VITALS: BP 174/82; PULSE 54; TEMP 36.4; O2SAT 97
[2024-12-03] MEDS: LEVOTHYROXINE SODIUM 112 MCG TABLET PO (05:59)
[2024-12-03] MEDS: MORPHINE SULFATE 20 MG/ML ORAL CONCENTRATE BOTTLE 10 MG SL ×2 (06:00→15:41)
[2024-12-03 08:00] VITALS: BP 149/77; PULSE 78; TEMP 36.3; O2SAT 95
[2024-12-03] MEDS: SERTRALINE HCL 50 MG TABLET PO (08:27)
[2024-12-03] MEDS: GABAPENTIN 300 MG CAPSULE PO (08:27)
[2024-12-03] MEDS: METOPROLOL TARTRATE 50 MG TABLET PO (08:27)
[2024-12-03] MEDS: PAXLOVID 2 EACH PO (08:28)
[2024-12-03] MEDS: ENOXAPARIN SODIUM 60 MG/0.6 ML SYRINGE SUBQ (08:30)
[2024-12-03] MEDS: DEXAMETHASONE SOD PHOS 4 MG/ML VIAL 6 MG IV (08:30)
--- NOTE | 2024-12-03 09:00 | CM.NOTE ---
Rounds made with Dr. Loera, plan of care reviewed with patient. Lillie will reach out to son regarding discharge planning.
--- NOTE | 2024-12-03 09:36 | SWNOTE1 ---
FLORINA called and spoke to pt's son, Sunny. He voiced she does have a bacterial infection and they are treating this. FLORINA and Sunny spoke about awaiting final blood cultures to determine medication at discharge. FLORINA did ask Sunny if he does plan on taking pt home at discharge? He stated no not at this time and he would like SW to look in to [facility] for the time being. SW to reach out to [facility]. FLORINA reached out to Miguel and Ariana at [facility]. Miguel voiced to send over referral to review and they will reach out to family so family can tour. FLORINA advised Sunny is the POA and provided Miguel with his number. Referral sent to [facility]. Referral included face sheet, ED note, H&P, provider notes, case management report, ortho consult, nursing notes, diagnostic imaging, med list, DNRCC order, and POA paperwork.
--- NOTE | 2024-12-03 10:27 | SWNOTE1 ---
FLORINA emailed Tara and Will at [facility] to updated them on discharge plans of possible discharge to [place]. FLORINA also spoke with FLORINA Gonzalez from [facility], in regards to discharge plans of the [place]. Lisa stated she already spoke to someone at the [facility] as well and they are reviewing the paperwork. SW to keep [facility] updated.
--- NOTE | 2024-12-03 10:58 | PM.PN ---
Progress Note: Subjective Subjective Interval history: Seen and evaluated this AM, she is laying in bed, pleasant, appears comfortable and does not offer any complaints. Exam Narrative Exam Narrative: General: Awake and alert, no acute distress HEENT: Normocephalic, atraumatic, no scleral icterus noted Lungs: Clear to auscultation bilaterally Cardiac: irregular rate and rhythm, no murmurs appreciated GI: Soft, nontender, regular bowel sounds. Extremities: she currently denies pain but her left knee is swollen Neuro: Cranial nerves II through XII intact, no focal deficits noted Skin: No rashes or lesions, no signs of jaundice Constitutional Vital Signs, click to edit/add: Last Vital Signs Temp 97.4 F L 12/03/24 08:00 Pulse 78 12/03/24 08:00 Resp 18 12/03/24 08:00 BP 149/77 H 12/03/24 08:00 Pulse Ox 95 12/03/24 08:00 O2 Del Method Room Air 12/03/24 08:00 O2 Flow Rate 2 12/01/24 08:00 Progress Note: A&P Assessment and Plan (1) Admission for end of life care: Assessment and Plan: Planning to discharge either home with home hospice or to a nursing facility with hospice care re-initiated. (2) Femoral condyle fracture: Assessment and Plan: Orthopedics consulted, nonoperative/conservative management Qualifiers: Encounter type: initial encounter Fracture alignment: nondisplaced Fracture type: closed Laterality: left Qualified Code(s): S72.415A - Nondisplaced unspecified condyle fracture of lower end of left femur, initial encounter for closed fracture (3) Fever: Assessment and Plan: ? This was secondary to COVID infection, she has been afebrile for more than 48 hours. (4) Bedbound: Assessment and Plan: Stable, at her baseline (5) Sepsis: Assessment and Plan: Secondary to COVID (6) Elevated LFTs: Assessment and Plan: ? Her abdominal discomfort is greatly improved today in fact she tells me she has none. This is likely secondary to COVID interaction with her medications ?AST normalized today ? ALT elevated 85 but trending down. (7) COVID: Assessment and Plan: ? Continue Paxil bid ? Patient is saturating well on room air, I discontinued Decadron this point in time ? Continue with therapeutic Lovenox while on Paxlovid Plan ? DVT prophylaxis addressed ? DNRCC, discharge pending disposition whether it be home with home hospice or nursing facility. It does appear that this point in time the son is pursuing intermediate facility. Urinary Catheter Management Urinary Catheter Management Urethral: Cath placed during this visit: yes Urethral indwelling: No Insertion date: 11/27/24 Insertion time: 23:51
--- NOTE | 2024-12-03 11:36 | SWNOTE1 ---
FLORINA received a call from Miguel at the [facility] and they can accept. They will take pt under a respite stay for 5 days. Family will then figure out plans after that. FLORINA received a call from Lisa at [facility] as well. She spoke to Miguel at [facility] as well and pt will go there under hospice for a 5 day respite stay. Lisa will call the son in regards to hospice paperwork. FLORINA called pt's son Sunny. He is agreeable to this plan. Sunny did ask about blood work and the bacterial infection and voiced if it is not treated correctly, then she will get sepsis. FLORINA advised that FLORINA will have Dr. Loera call to discuss medical piece. Sunny is agreeable. FLORINA messaged Dr. Loera and requested he call son.
[2024-12-03] MEDS: MORPHINE SULFATE 2 MG/ML SYRINGE 1 MG IV (11:45)
[2024-12-03 12:00] VITALS: BP 150/78; PULSE 76; TEMP 36.6; O2SAT 95
--- NOTE | 2024-12-03 12:16 | SWNOTE1 ---
FLORINA called Sunny and he was able to speak with Dr. Loera. Sunny is agreeable with plan of discharge today to [place] for a respite stay. FLORINA to set up transport.
--- NOTE | 2024-12-03 12:40 | SWNOTE1 ---
FLORINA called and set up [facility] for 4:00 pm for pt go to go [place] for a 5 day respite stay under [facility]. FLORINA notified, by email, Miguel at [place], Lisa and Tara at [facility]. FLORINA also let nurse know as well.
--- NOTE | 2024-12-03 13:41 | SWNOTE1 ---
FLORINA walked by room and pt's caregiver was on the phone with Sunny. FLORINA advised caregiver, Bekah, and Sunny of discharge time. Sunny voiced that Bekah did have some questions/concerns. Bekah asked if pt was discharging with [facility]as? FLORINA unsure but will ask nurse and have nurse address. Bekah also stated her urine looked bad and it appears there is blood in it. SW to let nurse know this information as well. Bekah asked about pt being discharge on drip morphine, SW to have nurse address as well. Bekah also asked about a waffle mattress or a mattress with cushion for pt over at [place]. FLORINA advised that FLORINA will reach out to Lisa at [facility] to see if they can get one for her there. FLORINA messaged nurse Dom with all concerns that caregiver has. FLORINA also called and spoke with Dom as well. FLORINA called and spoke with Lisa from [facility] and they will work on ordering one for pt at [place].
--- NOTE | 2024-12-03 14:55 | SWNOTE1 ---
FLORINA did stop back to room and speak with Bekah, caregiver. FLORINA asked if all issues had been addressed in regards to vivas, medications, and blood in urine? She stated yes and voiced appreciation. FLORINA did let her know that SW spoke to Lisa at [facility] and they are working on getting a cushion/waffle mattress for pt. FLORINA advised that someone, likely the nurse, from [facility] will also be going to [place] this evening to see patient. Bekah voiced understanding and no further questions at this time. FLORINA faxed dc med rec to [place]. FLORINA received call from [facility] and they are requesting SW send updates from pt's hospital stay and pt's hospice order. FLORINA faxed face sheet, ED note, all physician notes, labs, diagnostic imaging, nursing notes from today, vitals, DNR order, and hospice order to [facility]. Danae, nurse, [facility], and Sunny are all aware of discharge time.
--- NOTE | 2024-12-04 10:11 | P.DS_ITS ---
DS: Providers Provider Date of admission: 11/28/24 11:16 Primary care physician: Non-Staff Physician, Consults: 11/27/24 20:31 Consult to Hospice Routine Reason for consultation: End of life care 11/28/24 Consult to Orthopedics Routine Consulting Provider: Bob Mustafa Reason for consultation: fx Discharging clinician: SAVANNAH VALDEZ DS: Diagnosis Discharge Diagnosis (1) Admission for end of life care: (2) Femoral condyle fracture: Qualifiers: Encounter type: initial encounter Fracture alignment: nondisplaced Fracture type: closed Laterality: left Qualified Code(s): S72.415A - Nondisplaced unspecified condyle fracture of lower end of left femur, initial encounter for closed fracture (3) Fever: (4) Bedbound: (5) Sepsis: (6) Elevated LFTs: (7) COVID: DS: Summary Hospital Course Hospital Course: Miss Johnson is an 89-year-old female who was admitted to the hospital the afternoon of November 28 after she fell at home and had knee pain, she was found to have a femoral condyle fracture. She was also noted to be COVID-positive, she was febrile and also had positive blood cultures. Her Eliquis was held and she was started on Lovenox, she was started on Paxil bid for COVID infection as well as dexamethasone as she was febrile. She is hospice patient set up with home hospice. She was started on ceftriaxone given her positive blood culture, repeat cultures were obtained and were negative at time of discharge. Orthopedic surgery was also consulted and saw the patient, given that she is bedbound with multiple comorbidities, recommended nonop/conservative management. This was all explained to the patient and her family. The patient was discharged the afternoon of December 03 with a prescription to finish her Paxil bid, instructions to resume her Eliquis on December 06, she will receive antibiotics to complete the antibiotic course. I did discuss the plan of care with her son and daughter. Time Spent with Patient Time attestation: Total time spent providing and/or coordinating discharge services: Exam Narrative Exam Narrative: General: Awake, no acute distress HEENT: Normocephalic, atraumatic, no scleral icterus noted Lungs: Clear to auscultation bilaterally Cardiac: Regular rate and rhythm, no murmurs appreciated GI: Soft, nontender, regular bowel sounds. Extremities: Active and passive range of motion intact throughout, no edema, her left knee is quite tender to touch. There is a straight leg brace on. Her left foot is warm to the touch. No signs of compartment syndrome. Neuro: Cranial nerves II through XII intact, no focal deficits noted Skin: No rashes or lesions, no signs of jaundice Constitutional Vital Signs, click to edit/add: Last Vital Signs Temp 97.8 F 12/03/24 12:00 Pulse 76 12/03/24 12:00 Resp 18 12/03/24 12:00 BP 150/78 H 12/03/24 12:00 Pulse Ox 95 12/03/24 12:00 O2 Del Method Room Air 12/03/24 12:00 O2 Flow Rate 2 12/01/24 08:00 DS: Data Data Completed and Pending Labs on day of discharge: Preliminary micro results at discharge 11/28/24 15:30 Anaerobe Identification - Preliminary Blood 11/30/24 09:33 Blood Culture Result 2 - Preliminary Blood NO GROWTH AT 36-48 HOURS. FINAL TO FOLLOW. 11/30/24 09:23 Blood Culture Result 1 - Preliminary Blood NO GROWTH AT 36-48 HOURS. FINAL TO FOLLOW. 11/28/24 15:33 Blood Culture Result 2 - Preliminary Blood NO GROWTH AT 36-48 HOURS. FINAL TO FOLLOW. Discharge Plan Discharge Disposition: Hospice - Medical Facility Condition: Fair Discharge Medications: New Paxlovid 300 mg (150 mg x 2)-100 mg tablets,dose pack 1 ea PO .as directed Qty: 30 0RF Rx Instructions: Take as directed on the pack Paxlovid 300 mg (150 mg x 2)-100 mg tablets,dose pack 1 ea PO .as directed Qty: 30 0RF Rx Instructions: Take as directed on box enoxaparin 60 mg/0.6 mL Syringe 60 mg subcut BID 2 Days Qty: 2.4 0RF morphine concentrate 100 mg/5 mL (20 mg/mL) Solution 15 mg sublingual TID Qty: 30 0RF amoxicillin-pot clavulanate [Augmentin] 500-125 mg tablet 1 tab PO BID Qty: 6 0RF Continued gabapentin 300 mg capsule 600 mg PO TID trazodone 50 mg tablet 50 mg PO QPM PRN (Reason: sleep) diltiazem HCl [Cardizem CD] 240 mg capsule,extended release 24hr 240 mg PO DAILY levothyroxine 112 mcg capsule 112 mcg PO DAILY guaifenesin [Mucinex] 600 mg tablet extended release 12hr 600 mg PO BID lorazepam 0.5 mg tablet 0.25 mg PO Q4H PRN (Reason: agitation) metoprolol tartrate 50 mg tablet 50 mg PO BID duloxetine 60 mg capsule,delayed release(DR/EC) 60 mg PO DAILY sertraline 100 mg tablet 100 mg PO DAILY acetaminophen 325 mg capsule 650 mg PO Q6H PRN (Reason: fever or pain) oxycodone 5 mg tablet 2.5 mg PO Q4H PRN (Reason: pain) 3 Days Qty: 10 0RF Held Eliquis 2.5 mg tablet 2.5 mg PO BID Hold Instructions: Resume on 12/06/24. Discontinued rosuvastatin 10 mg tablet 10 mg PO QPM morphine concentrate 20 mg/mL syringe 5 mg sublingual Q2H PRN (Reason: pain and shortness of breath) Print Language: [place]og[place] Community [employer]izer/International [employer] Instructions: Discharge to [place] for 5 day respite stay under [facility]. Forms: Portal Instructions Discharge Date/Time: 12/03/24 16:14
== END 2024-12-03 16:14 | disposition hospice, inpatient (51) | DRG 871 ==
LOC: ER 20:47 → MS 21:19
PROVIDERS: Admitting Provider Internal Medicine; Emergency Provider Emergency Medicine; Visit Provider Internal Medicine
DX: A41.89 Other specified sepsis (principal); J96.91 Respiratory failure, unspecified with hypoxia; U07.1 COVID-19; S72.432A Displaced fracture of medial condyle of left femur, initial encounter for closed fracture; E44.0 Moderate protein-calorie malnutrition; W06.XXXA Fall from bed, initial encounter; Z74.01 Bed confinement status; Z66 Do not resuscitate; Z79.899 Other long term (current) drug therapy; Z79.01 Long term (current) use of anticoagulants; R50.9 Fever, unspecified; F01.C0 Vascular dementia, severe, without behavioral disturbance, psychotic disturbance, mood disturbance, and anxiety; Z87.891 Personal history of nicotine dependence; J44.9 Chronic obstructive pulmonary disease, unspecified; E78.5 Hyperlipidemia, unspecified; Z96.649 Presence of unspecified artificial hip joint; E66.01 Morbid (severe) obesity due to excess calories; M25.562 Pain in left knee; Z87.81 Personal history of (healed) traumatic fracture; R74.01 Elevation of levels of liver transaminase levels; Z90.49 Acquired absence of other specified parts of digestive tract; I48.91 Unspecified atrial fibrillation; Z68.25 Body mass index [BMI] 25.0-25.9, adult
CPT/HCPCS: 36415; 51702; 70450; 71045; 72170; 73560; 73700; 74176; 80048; 80053; 80076; 81003; 82140; 85025; 85027; 87040; 87077; 87150; 87186; 87420; 87804; 87811; 93005; 94640; 96374; 96375; 99285; J0131; J0696; J1100; J1335; J1650; J1885; J2270; J2405